=== PATIENT | male | born 1970 | race Hispanic/Latino ===

== ENCOUNTER 2017-10-07 21:35 | Inpatient (IN) | payer MEDICARE, OTHER ==
[2017-10-07] MEDS ORDERED: HYDROmorphone 0.5 mg/0.5 ml ISec IVP STA (22:12)
[2017-10-07 22:29] VITALS: BMI 34.4
[2017-10-07 22:32] LABS: BASO # 0.05 K/mm3 (0.0-2.0); BASO % 0.4 % (0.0-3.0); EOS # 0.2 (0.0-0.7); EOS % 1.2 % (1.5-5.0); GRAN # 11.46 (1.4-6.5); GRAN % 83.5 % (50.0-68.0); LYMPH # 1.3 (1.2-3.4); LYMPH % 9.7 % (22.0-35.0); MEAN CELL VOLUME 84.1 fl (80.0-105.0); MEAN CORPUSCULAR HEMOGLOBIN 29.4 pg (25.0-35.0); MEAN CORPUSCULAR HGB CONC 34.9 g/dl (31.0-37.0); MEAN PLATELET VOLUME 10.1 fl (7.0-11.0); MONO # 0.7 (0.1-0.6); MONO % 5.2 % (1.0-6.0); RBC 4.77 10^6/uL (3.5-6.1); RED CELL DISTRIBUTION WIDTH 14.4 % (11.5-14.5); WHITE BLOOD COUNT 13.7 10^3/ul (4.5-11.0)
[2017-10-07 22:35] LABS: ALB/GLOB RATIO 1.2 (1.1-1.8); ALBUMIN 4.2 g/dL (3.0-4.8); ALT/SGPT 30 U/L (7-56); AST/SGOT 19 U/L (17-59); BLOOD UREA NITROGEN 14 mg/dL (7-21); CALCIUM 9.9 mg/dL (8.4-10.5); GFR AFRICAN-AMERICAN > 60; GFR NON-AFRICAN AMERICAN > 60; LIPASE 127 U/L (23-300)
--- NOTE | 2017-10-07 22:42 | ED PDOC ---
Arrival/HPI - General Chief Complaint: Abdominal Pain Time Seen by Provider: 10/07/17 22:03 Historian: Patient - History of Present Illness Narrative History of Present Illness (Text): 10/07/17 22:40 A 47 year old male, whose past medical history includes gallstones, gastritis, diabetes and stroke (3 years ago) with right sided deficits, presents to the emergency department complaining of abdominal pain that developed today after eating dinner. Denies taking any medications for pain. Reports pain feels similar to symptoms in the past. Patient denies any other complaints at this time. Symptom Onset: Sudden Symptom Course: Unchanged Activities at Onset: Rest Context: Home Past Medical History - Provider Review Nursing Documentation Reviewed: Yes - Infectious Disease Hx of Infectious Diseases: None - Tetanus Immunization Tetanus Immunization: Unknown - Cardiac Hx Hypertension: Yes - Pulmonary Hx Respiratory Disorders: Yes (smokes 1 pack a day) - Neurological HX Cerebrovascular Accident: Yes - HEENT Hx HEENT Disorder: Yes - Renal Hx Renal Disorder: Yes - Endocrine/Metabolic Hx Diabetes Mellitus Type 2: Yes - Hematological/Oncological Hx Blood Disorders: Yes - Integumentary Hx Dermatological Disorder: Yes - Musculoskeletal/Rheumatological Hx Falls: Yes Hx Unsteady Gait: Yes Other/Comment: RT ARM CONTRACTION - Gastrointestinal Hx Gastrointestinal Disorders: Yes Other/Comment: Dx. gallstone - Genitourinary/Gynecological Hx Genitourinary Disorders: Yes - Psychiatric Hx Depression: Yes Hx Emotional Abuse: No Hx Physical Abuse: No Hx Substance Use: No - Past Surgical History Past Surgical History: No Previous - Anesthesia Hx Anesthesia: No Hx Anesthesia Reactions: No Hx Malignant Hyperthermia: No - Suicidal Assessment Feels Threatened In Home Enviroment: No Family/Social History - Physician Review Nursing Documentation Reviewed: Yes Family/Social History: No Known Family HX Smoking Status: Current Some Days Smoker Hx Alcohol Use: No Hx Substance Use: No Hx Substance Use Treatment: No Allergies/Home Meds Allergies/Adverse Reactions: Allergies No Known Allergies Allergy (Verified 12/04/13 13:51) Home Medications: Home Meds Medication Instructions Recorded Confirmed ALPRAZolam [Xanax] 0.5 mg PO PRN PRN 09/03/13 10/07/17 FLUoxetine [Prozac] 20 mg PO DAILY 09/03/13 10/07/17 Aspirin 81 mg PO DAILY 10/07/15 10/07/17 Famotidine [Pepcid] 40 mg PO BID 10/07/17 10/07/17 Gabapentin [Neurontin] 300 mg PO TID 10/07/17 10/07/17 Glipizide [Glipizide Xl] 5 mg PO BID 10/07/17 10/07/17 Review of Systems - Physician Review All systems were reviewed & negative as marked: Yes - Review of Systems Constitutional: absent: Fevers Gastrointestinal: Abdominal Pain Physical Exam Vital Signs Reviewed: Yes Vital Signs Temp Pulse Resp BP Pulse Ox 10/07/17 22:08 98.1 F 66 18 133/82 99 Temperature: Afebrile Blood Pressure: Normal Pulse: Regular Respiratory Rate: Normal Appearance: Positive for: Well-Appearing, Non-Toxic, Comfortable Pain Distress: None Mental Status: Positive for: Alert and Oriented X 3 - Systems Exam Head: Present: Atraumatic, Normocephalic Pupils: Present: PERRL Extroacular Muscles: Present: EOMI Conjunctiva: Present: Normal Mouth: Present: Moist Mucous Membranes Neck: Present: Normal Range of Motion Respiratory/Chest: Present: Clear to Auscultation, Good Air Exchange. No: Respiratory Distress, Accessory Muscle Use Cardiovascular: Present: Regular Rate and Rhythm, Normal S1, S2. No: Murmurs Abdomen: Present: Normal Bowel Sounds. No: Tenderness, Distention, Peritoneal Signs Back: Present: Normal Inspection Upper Extremity: Present: Normal Inspection. No: Cyanosis, Edema Lower Extremity: Present: Normal Inspection. No: Edema Neurological: Present: GCS=15, CN II-XII Intact, Speech Normal, Other (right sided deficit) Skin: Present: Warm, Dry, Normal Color. No: Rashes Psychiatric: Present: Alert, Oriented x 3, Normal Insight, Normal Concentration Medical Decision Making ED Course and Treatment: 10/07/17 22:38 Impression: A 47 year old male with abdominal pain. Plan: -- US abdomen -- urinalysis -- labs -- Zofran, Dilaudid -- Reassess and disposition Prior Visits: Notes and results from previous visits were reviewed. Patient last reported to the emergency department on 10/07/15 for evaluation of abdominal pain. Progress Notes: US Abdomen Complete FINDINGS: Liver: Limited evaluation. The liver is enlarged, measuring 19.3 cm. Sling increased and heterogenous echogenicity of the liver. Evaluation for lesion is limited. No intrahepatic bile duct dilation. Gallbladder: There are gallstones and there is gall bladder wall thickening, measuring 5 mm No sonographic Cook's sign as per technologist. Possibility of cholecystitis is not excluded. Correlate clinically. Common bile duct: The CBD is borderline dilated, measuring 6 mm. No stones. Pancreas: Pancreas is not visualized. Kidneys: kidneys are suboptimally visualized. No hydronephrosis or US evidence of calculi. Spleen: The spleen is borderline prominent. IMPRESSION: 1. There are gallstones and there is gall bladder wall thickening, measuring 5 mm . No sonographic Cook's sign as per technologist. Possibility of cholecystitis is not excluded. Correlate clinically. 2. The CBD is borderline dilated, measuring 6 mm. Dictated and Authenticated by: Amanda Felipe MD 10/07/2017 11:56 PM Eastern Time ([place] & [place]) 10/08/17 00:[address] Bermudez, who agrees and accepts patient to be admitted under her service. 10/08/17 01:00 Spoke with medical surgical tech and general surgeon, Dr. Mendoza, who agree to admit patient. - Lab Interpretations Lab Results: 10/07/17 22:19 10/07/17 22:19 Lab Results 10/07/17 22:54: Urine Color Yellow, Urine Appearance Sl cloudy, Urine pH 6.0, Ur Specific Start >= 1.030, Urine Protein 100 H, Urine Glucose (UA) Negative, Urine Ketones Trace H, Urine Blood Negative, Urine Nitrate Negative, Urine Bilirubin Negative, Urine Urobilinogen 1.0 H, Ur Leukocyte Esterase Negative, Urine RBC 0 - 2, Urine WBC 0 - 2, Ur Epithelial Cells 0 - 2, Urine Other Usperm 10/07/17 22:19: Sodium 138, Potassium 4.5, Chloride 99, Carbon Dioxide 26, Anion Gap 18, BUN 14, Creatinine 0.8, Est GFR ( Amer) > 60, Est GFR (Non- Af Amer) > 60, Random Glucose 185 H, Calcium 9.9, Total Bilirubin 1.4 H, AST 19 , ALT 30, Alkaline Phosphatase 141 H, Total Protein 7.7, Albumin 4.2, Globulin 3.6, Albumin/Globulin Ratio 1.2, Lipase 127 10/07/17 22:19: PT 13.2 H, INR 1.15 H 10/07/17 22:19: WBC 13.7 H D, RBC 4.77, Hgb 14.0, Hct 40.1 L, MCV 84.1, MCH 29.4 , MCHC 34.9, RDW 14.4, Plt Count 341, MPV 10.1, Gran % 83.5 H, Lymph % (Auto) 9.7 L, [place] % (Auto) 5.2, Eos % (Auto) 1.2 L, Baso % (Auto) 0.4, Gran # 11.46 H , Lymph # 1.3, [place] # 0.7 H, Eos # 0.2, Baso # 0.05 I have reviewed the lab results: Yes - RAD Interpretation Radiology Orders: 10/07/17 22:12 ABDOMEN COMPLETE [US] Stat - Medication Orders Current Medication Orders: Piperacillin Sod/Tazobactam Sod (Zosyn 3.375 In Ns 100ml) 100 mls @ 200 mls/hr IVPB STAT STA PRN Reason: Protocol Stop: 10/08/17 01:49 Discontinued Medications Hydromorphone HCl (Dilaudid) 1 mg IVP STAT STA Stop: 10/07/17 22:13 Last Admin: 10/07/17 22:40 Dose: 1 mg MAR Pain Assessment Document 10/07/17 22:40 AD (Rec: 10/07/17 22:40 AD [place] [id number]) Pain Reassessment Is this a pain reassessment? No Presence of Pain Presence of Pain Yes Description Intensity of Pain at present 6 Pain Behavior Facial Grimacing IVP Administration Document 10/07/17 22:40 AD (Rec: 10/07/17 22:40 AD [email or web address] Charges for Administration # of IVP Administrations 1 Ondansetron HCl (Zofran Inj) 8 mg IVP STAT STA Stop: 10/07/17 22:13 Last Admin: 10/07/17 22:39 Dose: 8 mg IVP Administration Document 10/07/17 22:39 AD (Rec: 10/07/17 22:40 AD [email or web address] Charges for Administration # of IVP Administrations 1 - PA / FOREIGN LANGUAGE INTERPRETER / Resident Statement MD/DO has reviewed & agrees with the documentation as recorded. - Scribe Statement The provider has reviewed the documentation as recorded by the Scribe Nan Ellsi All medical record entries made by the Scribe were at my direction and personally dictated by me. I have reviewed the chart and agree that the record accurately reflects my personal performance of the history, physical exam, medical decision making, and the department course for this patient. I have also personally directed, reviewed, and agree with the discharge instructions and disposition. Disposition/Present on Arrival - Present on Arrival Any Indicators Present on Arrival: No History of DVT/PE: No History of Uncontrolled Diabetes: Yes Urinary Catheter: No History of Decub. Ulcer: No History Surgical Site Infection Following: None - Disposition Have Diagnosis and Disposition been Completed?: Yes Diagnosis: Cholelithiasis, Cholecystitis Disposition: HOSPITALIZED Disposition Time: 01:17 (Dr. Bermudez Accepting, Consult [facility]) Patient Plan: Admission Referrals: Roxann Ziegler MD [Primary Care Provider] - Follow up with primary Forms: [employer] - [employer] (Korean)
[2017-10-07 22:48] LABS: INR 1.15 (0.93-1.08); PROTHROMBIN TIME 13.2 SECONDS (9.4-12.5)
[2017-10-07 23:04] LABS: URINE BILIRUBIN NEGATIVE (NEGATIVE); URINE BLOOD NEGATIVE (NEGATIVE); URINE GLUCOSE (UA) NEGATIVE (NEGATIVE); URINE LEUKOCYTE ESTERASE NEGATIVE Leu/uL (NEGATIVE); URINE NITRATE NEGATIVE (NEGATIVE); URINE PROTEIN 100 mg/dL (<30 mg/dL)
[2017-10-07 23:10] LABS: URINE COLOR YELLOW (YELLOW)
[2017-10-07 23:11] LABS: URINE APPEARANCE SL CLOUDY (CLEAR)
[2017-10-07 23:59] LABS: URINE EPITHELIAL CELLS 0 - 2 /hpf (0-5); URINE RBC 0 - 2 /hpf (0-2); URINE WBC 0 - 2 /hpf (0-6)
[2017-10-08] MEDS ORDERED: Piperacillin/Tazobact 3.375 gm 100 ML IVPB STA (01:20)
--- NOTE | 2017-10-08 02:04 | CP.PCM.CON ---
<Guido Lee - Last Filed: 10/08/17 02:05> History of Present Illness - History of Present Illness History of Present Illness: General Surgery- Dr. Mendoza 47M hx of CVA w/ residual RUE deficit, cholelithiasis, NIDDM, presents to the ED w/ sharp RUQ abd pain that started at 1800 last night 2hrs after eating a fatty meal. Patient has had similar episodes in the past before, but pain not as severe. Pain is better in the ED after receiving pain medication. Has had episodes of non-bloody loose bowel movements over the last 2 days. Denies recent sick contacts. Denies: Nausea, vomiting, chest pain, shortness of breath, fevers, chills, changes in urinary habits PMH: CVA w/ residual RUE deficit, NIDDM, cholelithiasis, anxiety, depression PSH: Denies ALL: NKDA SocialHx: former smoker quit 3yrs ago s/p CVA- 1ppd > 10yrs, denies ETOH, recreational drug use Review of Systems - Review of Systems All systems: reviewed and no additional remarkable complaints except - Constitutional Constitutional: As Per HPI Past Patient History - Infectious Disease Hx of Infectious Diseases: None - Tetanus Immunizations Tetanus Immunization: Unknown - Past Social History Smoking Status: Current Some Days Smoker - CARDIAC Hx Hypertension: Yes - PULMONARY Hx Respiratory Disorders: Yes (smokes 1 pack a day) - NEUROLOGICAL HX Cerebrovascular Accident: Yes - HEENT Hx HEENT Problems: Yes - RENAL Hx Chronic Kidney Disease: Yes - ENDOCRINE/METABOLIC Hx Diabetes Mellitus Type 2: Yes - HEMATOLOGICAL/ONCOLOGICAL Hx Blood Disorders: Yes - INTEGUMENTARY Hx Dermatological Problems: Yes - MUSCULOSKELETAL/RHEUMATOLOGICAL Hx Falls: Yes Hx Unsteady Gait: Yes Other/Comment: RT ARM CONTRACTION - GASTROINTESTINAL Hx Gastrointestinal Disorders: Yes Other/Comment: Dx. gallstone - GENITOURINARY/GYNECOLOGICAL Hx Genitourinary Disorders: Yes - PSYCHIATRIC Hx Depression: Yes Hx Emotional Abuse: No Hx Physical Abuse: No Hx Substance Use: No - SURGICAL HISTORY Hx Surgeries: No - ANESTHESIA Hx Anesthesia: No Hx Anesthesia Reactions: No Hx Malignant Hyperthermia: No Meds Allergies/Adverse Reactions: Allergies Allergy/AdvReac Type Severity Reaction Status Date / Time No Known Allergies Allergy Verified 12/04/13 13:51 - Medications Medications: Current Medications Acetaminophen (Tylenol 325mg Tab) 650 mg PO Q4 PRN PRN Reason: Fever >100.4 F Hydromorphone HCl (Dilaudid) 0.5 mg IVP Q4H PRN PRN Reason: Pain, moderate (4-7) Lactated Ringer's (Lactated Ringer's) 1,000 mls @ 150 mls/hr IV .Q6H40M KAREEN Piperacillin Sod/Tazobactam Sod (Zosyn 3.375 In Ns 100ml) 100 mls @ 200 mls/hr IVPB Q6 KAREEN PRN Reason: Protocol Stop: 10/08/17 12:29 Insulin Human Regular (Humulin R Med) 0 units SC ACHS KAREEN PRN Reason: Protocol Ondansetron HCl (Zofran Inj) 4 mg IVP Q4 PRN PRN Reason: Nausea/Vomiting Physical Exam - Constitutional Appears: Non-toxic, No Acute Distress - Eye Exam Eye Exam: EOMI. absent: Scleral icterus - Respiratory Exam Respiratory Exam: NORMAL BREATHING PATTERN. absent: Accessory Muscle Use, Respiratory Distress - Cardiovascular Exam Cardiovascular Exam: +S1, +S2. absent: Bradycardia, Tachycardia - GI/Abdominal Exam GI & Abdominal Exam: Soft, Tenderness. absent: Distended, Firm, Guarding, Hernia, Rebound, Rigid Additional comments: Tender to palpation in RUQ negative morales sign - Extremities Exam Extremities exam: Negative for: calf tenderness Additional comments: contracted R hand RUE paralysis - Back Exam Back exam: absent: CVA tenderness (L), CVA tenderness (R) - Neurological Exam Neurological exam: Alert, Oriented x3 - Psychiatric Exam Psychiatric exam: Normal Affect - Skin Skin Exam: Intact, Warm Results - Vital Signs Recent Vital Signs: Last Vital Signs Temp 98.1 F 10/07/17 22:08 Pulse 66 10/07/17 22:08 Resp 18 10/07/17 22:08 BP 133/82 10/07/17 22:08 Pulse Ox 99 10/07/17 22:08 - Labs Result Diagrams: 10/07/17 22:19 10/07/17 22:19 Assessment & Plan - Assessment and Plan (Free Text) Assessment: 47M RUQ abd pain symptomatic cholelithiasis vs cholecystitis US: GBW thickening 6mm, gallstone in the neck of the gallbladder, minimal pericholecystic fluid, CBD wnl Plan: - NPO - IVF/Abx - analgesia & anti-emetic PRN - DVT ppx - serial abd exams - further recs per Dr. Mendoza surgical attending Guido Lee PGY1 <Dada Mendoza - Last Filed: 10/12/17 15:38> Results - Vital Signs Recent Vital Signs: Last Vital Signs Temp 97.9 F 10/11/17 04:50 Pulse 70 10/11/17 12:47 Resp 18 10/11/17 04:50 BP 158/87 H 10/11/17 12:47 Pulse Ox 97 10/11/17 04:50 - Labs Result Diagrams: 10/11/17 06:45 10/11/17 06:45 Attending/Attestation - Attestation I have personally seen and examined this patient.: Yes I have fully participated in the care of the patient.: Yes I have reviewed all pertinent clinical information: Yes Notes (Text): Pt was seen and examined at bedside Agree with above note and assessment Pt with Cholecystitis and Cholelithiasis with CVA RUQ tenderness OR tomorrow for Lap Cholecystectomy possible Open Consent NPO, IVF IV antibiotics Neurology consult Cardiology clearance Medical clearance Plan d.w pt in detail Risk and benefit explained in detail.
[2017-10-08] MEDS: Lactated Ringer's 1,000 ML IV SCH ×3 (02:47→14:22)
[2017-10-08 05:40] LABS: BASO # 0.04 K/mm3 (0.0-2.0); BASO % 0.4 % (0.0-3.0); EOS # 0.2 (0.0-0.7); EOS % 2.3 % (1.5-5.0); GRAN # 6.75 (1.4-6.5); GRAN % 64.5 % (50.0-68.0); HEMOGLOBIN 12.8 g/dL (14.0-18.0); LYMPH # 2.6 (1.2-3.4); MEAN CELL VOLUME 83.8 fl (80.0-105.0); MEAN CORPUSCULAR HEMOGLOBIN 28.8 pg (25.0-35.0); MEAN CORPUSCULAR HGB CONC 34.4 g/dl (31.0-37.0); MEAN PLATELET VOLUME 10.3 fl (7.0-11.0); MONO # 0.8 (0.1-0.6); MONO % 7.8 % (1.0-6.0); RBC 4.44 10^6/uL (3.5-6.1); RED CELL DISTRIBUTION WIDTH 14.2 % (11.5-14.5); WHITE BLOOD COUNT 10.5 10^3/ul (4.5-11.0)
[2017-10-08 07:00] LABS: ALB/GLOB RATIO 1.2 (1.1-1.8); ALBUMIN 3.5 g/dL (3.0-4.8); ALT/SGPT 18 U/L (7-56); AST/SGOT 20 U/L (17-59); BLOOD UREA NITROGEN 13 mg/dL (7-21); CALCIUM 9.1 mg/dL (8.4-10.5); GFR AFRICAN-AMERICAN > 60; GFR NON-AFRICAN AMERICAN > 60
[2017-10-08] MEDS: Insulin Reg-MEDIUM-Coverage SC SCH ×2 (08:14→11:59)
[2017-10-08] MEDS: Piperacillin/Tazobact 3.375 gm 100 ML IVPB SCH ×2 (08:59→14:17)
--- NOTE | 2017-10-08 10:10 | US ---
HISTORY: Acute Cholecystitis? COMPARISON: None. TECHNIQUE: Sonographic evaluation of the abdomen. FINDINGS: LIVER: Measures 19.3. Cm. Diffusely increased echogenicity of the liver parenchyma. Consistent with fatty infiltration. Smooth contour. No mass. No biliary ductal dilatation. GALLBLADDER: Cholelithiasis. Thickened wall up to 5 mm. No pericholecystic fluid. Negative sonographic Cook sign. COMMON BILE DUCT: Measures 6 mm. No stones. No dilatation. PANCREAS: Unremarkable as visualized. No mass. No ductal dilatation. RIGHT KIDNEY: Measures 10.4cm. Normal echogenicity. No calculus, mass, or hydronephrosis. LEFT KIDNEY: Measures 12.3cm. Normal echogenicity. No calculus, mass, or hydronephrosis. SPLEEN: Normal in size and contour. No mass. AORTA: Could not be visualized due to bowel gas IVC: Unremarkable. OTHER FINDINGS: None. IMPRESSION: Cholelithiasis with thickened gallbladder wall. Negative sonographic Cook sign. Equivocal findings for cholecystitis. Correlate clinically. Mild hepatomegaly with fatty infiltration of the liver. Otherwise unremarkable examination. Preliminary interpretation of this examination was reported by [facility] at 11:56 p.m. on 10/07/2017. There is concurrence of this report with the preliminary interpretation.
[2017-10-08] MEDS: GlipiZIDE 5 mg SR Tab PO SCH ×2 (10:47→17:05)
[2017-10-08] MEDS: Insulin Reg-LOW-Coverage SC SCH ×3 (12:38→22:10)
--- NOTE | 2017-10-08 18:24 | CP.PCM.PCO ---
Physician Communication Note - Physician Communication Note Physician Communication Note: saw pt last wek in office, cleared for surgery. will f/w consult.
--- NOTE | 2017-10-08 22:01 | CT ---
EXAM: CT Head Without Intravenous Contrast EXAM DATE/TIME: 10/08/2017 6:24 PM CLINICAL HISTORY: The patient age is 47 years old and is male; Pain; Headache; Headache not specified; Additional info: H/o CVA Facility exam id and description: Ct heads head w/o contrast TECHNIQUE: Axial computed tomography images of the head/brain without intravenous contrast. All CT scans at this facility use one or more dose reduction techniques, viz.: automated exposure control; ma/kV adjustment per patient size (including targeted exams where dose is matched to indication; i.e. head); or iterative reconstruction technique. Coronal and sagittal reformatted images were created and reviewed. COMPARISON: No relevant prior studies available. FINDINGS: Brain: Hypodense lacunar infarcts are visualized within the bilateral basal ganglia and left periventricular region, which appear chronic. There are scattered foci of hypodensity within the cerebral white matter, nonspecific in a patient this age. Possible etiologies include small vessel ischemic disease and demyelination. No acute intracranial hemorrhage is seen. Midline shift: There is no midline shift. Ventricles: There is mild ex vacuo dilatation of the left lateral ventricle. Bones/joints: The calvarium demonstrates no evidence for a depressed fracture. Soft tissues: There is mild soft tissue swelling or scarring of the posterior scalp. Sinuses: A mucus retention cyst or polyp is visualized within the right maxillary sinus. Mastoid air cells: No mastoid effusion. IMPRESSION: 1. Hypodense lacunar infarcts are visualized within the bilateral basal ganglia and left periventricular region, which appear chronic. Otherwise, there is no acute territorial type infarct. 2. No acute intracranial hemorrhage. 3. There are scattered foci of hypodensity within the cerebral white matter, nonspecific in a patient this age. Possible etiologies include small vessel ischemic disease and demyelination. This can be further evaluated with a nonemergent MRI. 4. There is mild soft tissue swelling or scarring of the posterior scalp.
[2017-10-09 06:20] LABS: BASO # 0.06 K/mm3 (0.0-2.0); BASO % 0.8 % (0.0-3.0); EOS # 0.3 (0.0-0.7); EOS % 4.2 % (1.5-5.0); GRAN # 5.12 (1.4-6.5); GRAN % 64.7 % (50.0-68.0); HEMOGLOBIN 12.8 g/dL (14.0-18.0); LYMPH # 1.8 (1.2-3.4); LYMPH % 23.3 % (22.0-35.0); MEAN CELL VOLUME 82.4 fl (80.0-105.0); MEAN CORPUSCULAR HEMOGLOBIN 28.8 pg (25.0-35.0); MEAN PLATELET VOLUME 10.1 fl (7.0-11.0); MONO # 0.6 (0.1-0.6); RBC 4.44 10^6/uL (3.5-6.1); RED CELL DISTRIBUTION WIDTH 14.3 % (11.5-14.5); WHITE BLOOD COUNT 7.9 10^3/ul (4.5-11.0)
[2017-10-09 06:26] LABS: IRON 48 ug/dL (45-180)
[2017-10-09 06:31] LABS: ALB/GLOB RATIO 1.2 (1.1-1.8); ALBUMIN 3.4 g/dL (3.0-4.8); ALT/SGPT 23 U/L (7-56); AST/SGOT 21 U/L (17-59); BLOOD UREA NITROGEN 10 mg/dL (7-21); CALCIUM 9.5 mg/dL (8.4-10.5); GFR AFRICAN-AMERICAN > 60; GFR NON-AFRICAN AMERICAN > 60; HDL CHOLESTEROL 27 mg/dL (29-60)
[2017-10-09 06:36] LABS: % IRON SATURATION 19 % (20-55); TOTAL IRON BINDING CAPACITY 252 ug/dL (261-462)
[2017-10-09 06:41] LABS: LDL CHOLESTEROL 45 mg/dL (0-129)
--- NOTE | 2017-10-09 07:53 | CP.PCM.CON ---
<YaniqueElizabeth - Last Filed: 10/09/17 10:07> History of Present Illness - History of Present Illness History of Present Illness: PGY-[address] Head Neurology consult: surgical clearance Mr Dexter Shah, 47M former smoker hx of CVA w/ residual spastic RUE weakness, diabetes, and HTN presents to the ED c/o sharp RUQ abd pain that started last night 2hrs after eating a fatty meal. Patient has had similar episodes in the past before, but pain not as severe. Pain is better in the ED after receiving tylenol and gabapentin. Pt's last bowel movement was over 2 days ago. Abdominal ultrasound showed gall bladder wall thickening 6mm, gallstone in the neck of the gallbladder, minimal pericholecystic fluid, CBD wnl. Pt was diagnosed with symptomatic cholelithiasis and will undergo laparoscopic cholecystectomy this afternoon. Denies recent sick contacts. 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, 2012 HTN Diabetes, non-insulin dependent, x 20 years cholelithiasis anxiety, mild depression PSH: Denies SocialHx: former smoker quit 3yrs ago s/p CVA 1ppd > 10yrs, denies ETOH, recreational drug use Ambulate with cane Live with and daughter ALL: NKDA Med: review Review of Systems - Review of Systems All systems: reviewed and no additional remarkable complaints except Review of Systems: as per hpi Past Patient History - Infectious Disease Hx of Infectious Diseases: None - Tetanus Immunizations Tetanus Immunization: Unknown - Past Social History Smoking Status: Never Smoked - CARDIAC Hx Hypertension: Yes - PULMONARY Hx Respiratory Disorders: No - NEUROLOGICAL HX Cerebrovascular Accident: Yes - HEENT Hx HEENT Problems: No - RENAL Hx Chronic Kidney Disease: No - ENDOCRINE/METABOLIC Hx Diabetes Mellitus Type 2: Yes - HEMATOLOGICAL/ONCOLOGICAL Hx Blood Transfusions: No Hx Blood Transfusion Reaction: No - INTEGUMENTARY Hx Dermatological Problems: No - MUSCULOSKELETAL/RHEUMATOLOGICAL Hx Falls: No Hx Unsteady Gait: Yes Other/Comment: RT ARM CONTRACTION - GASTROINTESTINAL Hx Gall Bladder Disease: Yes Other/Comment: Dx. gallstone - GENITOURINARY/GYNECOLOGICAL Hx Genitourinary Disorders: No - PSYCHIATRIC Hx Depression: Yes Hx Emotional Abuse: No Hx Physical Abuse: No Hx Substance Use: No - SURGICAL HISTORY Hx Surgeries: No - ANESTHESIA Hx Anesthesia Reactions: No Hx Malignant Hyperthermia: No Meds Allergies/Adverse Reactions: Allergies Allergy/AdvReac Type Severity Reaction Status Date / Time No Known Allergies Allergy Verified 12/04/13 13:51 - Medications Medications: Current Medications Acetaminophen (Tylenol 325mg Tab) 650 mg PO Q4 PRN PRN Reason: Fever >100.4 F Last Admin: 10/08/17 10:50 Dose: 650 mg Alprazolam (Xanax) 0.5 mg PO PRN PRN; Protocol PRN Reason: Insomnia Atorvastatin Calcium (Lipitor) 40 mg PO DIN [facility] Last Admin: 10/08/17 17:05 Dose: Not Given Fluoxetine HCl (Prozac) 20 mg PO DAILY [facility] Last Admin: 10/08/17 10:46 Dose: 20 mg Gabapentin (Neurontin) 300 mg PO TID [facility] PRN Reason: Protocol Last Admin: 10/08/17 17:06 Dose: Not Given Glipizide (Glucotrol Xl) 5 mg PO BID [facility] Last Admin: 10/08/17 17:05 Dose: Not Given Hydromorphone HCl (Dilaudid) 0.5 mg IVP Q4H PRN PRN Reason: Pain, moderate (4-7) Insulin Human Regular (Humulin R Low) 0 units SC ACHS [facility] PRN Reason: Protocol Last Admin: 10/08/17 22:10 Dose: Not Given Metformin HCl (Glucophage) 1,000 mg PO BID [facility] Last Admin: 10/08/17 17:06 Dose: Not Given Ondansetron HCl (Zofran Inj) 4 mg IVP Q4 PRN PRN Reason: Nausea/Vomiting Pantoprazole Sodium (Protonix Inj) 40 mg IVP DAILY [facility] Last Admin: 10/08/17 10:47 Dose: 40 mg Physical Exam - Constitutional Appears: Well - Head Exam Head Exam: ATRAUMATIC, NORMAL INSPECTION, NORMOCEPHALIC - Eye Exam Eye Exam: EOMI, Normal appearance, PERRL Pupil Exam: NORMAL ACCOMODATION, PERRL - ENT Exam ENT Exam: Mucous Membranes Moist - Neck Exam Neck exam: Positive for: Normal Inspection Additional comments: supple - Respiratory Exam Respiratory Exam: Clear to Auscultation Bilateral, NORMAL BREATHING PATTERN - Cardiovascular Exam Cardiovascular Exam: REGULAR RHYTHM, +S1, +S2 - GI/Abdominal Exam GI & Abdominal Exam: Normal Bowel Sounds, Soft, Tenderness (Slight tenderness RUQ ) - Neurological Exam Neurological exam: Alert, CN II-XII Intact, Oriented x3 Additional comments: Speech: fluent, mild slurring recall: 2/3 Motor: R shoulder 0/5. Increase tone in RUE in elbow extension and wrist extension RUE 0/5; LUE 5/5 RLE: 4/5; LLE 5/5 Sensory: intact coordination: heel-gliding intact Results - Vital Signs Recent Vital Signs: Last Vital Signs Temp 97.9 F 10/09/17 05:40 Pulse 65 10/09/17 05:40 Resp 20 10/09/17 05:40 BP 144/81 10/09/17 05:40 Pulse Ox 96 10/09/17 05:40 - Labs Result Diagrams: 10/09/17 06:00 10/09/17 06:00 Labs: Laboratory Results - last 24 hr 10/08/17 10/08/17 10/08/17 07:32 11:45 16:30 WBC RBC Hgb Hct MCV MCH MCHC RDW Plt Count MPV Gran % Lymph % (Auto) [place] % (Auto) Eos % (Auto) Baso % (Auto) Gran # Lymph # [place] # Eos # Baso # Sodium Potassium Chloride Carbon Dioxide Anion Gap BUN Creatinine Est GFR ( Amer) Est GFR (Non-Af Amer) POC Glucose (mg/dL) 80 158 H 93 Random Glucose Calcium Iron TIBC % Saturation Total Bilirubin AST ALT Alkaline Phosphatase Total Protein Albumin Globulin Albumin/Globulin Ratio Triglycerides Cholesterol LDL Cholesterol Direct HDL Cholesterol TSH 3rd Generation 10/08/17 10/09/17 10/09/17 22:08 06:00 06:00 WBC RBC Hgb Hct MCV MCH MCHC RDW Plt Count MPV Gran % Lymph % (Auto) [place] % (Auto) Eos % (Auto) Baso % (Auto) Gran # Lymph # [place] # Eos # Baso # Sodium 141 Potassium 4.1 Chloride 103 Carbon Dioxide 27 Anion Gap 15 BUN 10 Creatinine 0.8 Est GFR ( Amer) > 60 Est GFR (Non-Af Amer) > 60 POC Glucose (mg/dL) 107 Random Glucose 116 H Calcium 9.5 Iron 48 TIBC 252 L % Saturation 19 L Total Bilirubin 1.0 AST 21 ALT 23 Alkaline Phosphatase 106 Total Protein 6.3 Albumin 3.4 Globulin 2.9 Albumin/Globulin Ratio 1.2 Triglycerides 83 Cholesterol 85 L LDL Cholesterol Direct 45 HDL Cholesterol 27 L TSH 3rd Generation 10/09/17 10/09/17 10/09/17 06:00 06:00 07:20 WBC 7.9 D RBC 4.44 Hgb 12.8 L Hct 36.6 L MCV 82.4 MCH 28.8 MCHC 35.0 RDW 14.3 Plt Count 310 MPV 10.1 Gran % 64.7 Lymph % (Auto) 23.3 [place] % (Auto) 7.0 H Eos % (Auto) 4.2 Baso % (Auto) 0.8 Gran # 5.12 Lymph # 1.8 [place] # 0.6 Eos # 0.3 Baso # 0.06 Sodium Potassium Chloride Carbon Dioxide Anion Gap BUN Creatinine Est GFR ( Amer) Est GFR (Non-Af Amer) POC Glucose (mg/dL) 119 H Random Glucose Calcium Iron TIBC % Saturation Total Bilirubin AST ALT Alkaline Phosphatase Total Protein Albumin Globulin Albumin/Globulin Ratio Triglycerides Cholesterol LDL Cholesterol Direct HDL Cholesterol TSH 3rd Generation 1.65 Assessment & Plan - Assessment and Plan (Free Text) Plan: Mr Dexter Shah, 47M former smoker hx of CVA w/ residual spastic RUE weakness with mild depression, diabetes, and HTN has symptomatic cholelithiasis and will undergo laparoscopic cholecystectomy this afternoon. - neurology cleared for the above stated surgery - continue aspirin 81 and lipitor 40 for stroke prevention - maintain SBP 120-130 - maintain blood glucose 140-180 - ____pending offical read of carotid ultrasound - CT head: chronic hypodense lacunar infart b/l basal ganglia and L periventrical scattered hypodensity in white matter likely Small vessel ischemic disease Mild soft tissue swelling in posterior scalp s/r/d/w Dr. Head <Elbert Head - Last Filed: 10/09/17 12:22> Meds - Medications Medications: Current Medications Acetaminophen (Tylenol 325mg Tab) 650 mg PO Q4 PRN PRN Reason: Fever >100.4 F Last Admin: 10/08/17 10:50 Dose: 650 mg Alprazolam (Xanax) 0.5 mg PO PRN PRN; Protocol PRN Reason: Insomnia Atorvastatin Calcium (Lipitor) 40 mg PO DIN [facility] Last Admin: 10/08/17 17:05 Dose: Not Given Fluoxetine HCl (Prozac) 20 mg PO DAILY [facility] Last Admin: 10/08/17 10:46 Dose: 20 mg Gabapentin (Neurontin) 300 mg PO TID [facility] PRN Reason: Protocol Last Admin: 10/08/17 17:06 Dose: Not Given Glipizide (Glucotrol Xl) 5 mg PO BID [facility] Last Admin: 10/08/17 17:05 Dose: Not Given Hydromorphone HCl (Dilaudid) 0.5 mg IVP Q4H PRN PRN Reason: Pain, moderate (4-7) Insulin Human Regular (Humulin R Low) 0 units SC ACHS [facility] PRN Reason: Protocol Last Admin: 10/09/17 08:13 Dose: Not Given Metformin HCl (Glucophage) 1,000 mg PO BID [facility] Last Admin: 10/08/17 17:06 Dose: Not Given Ondansetron HCl (Zofran Inj) 4 mg IVP Q4 PRN PRN Reason: Nausea/Vomiting Pantoprazole Sodium (Protonix Inj) 40 mg IVP DAILY [facility] Last Admin: 10/09/17 10:38 Dose: 40 mg Results - Vital Signs Recent Vital Signs: Last Vital Signs Temp 97.9 F 10/09/17 05:40 Pulse 65 10/09/17 05:40 Resp 20 10/09/17 05:40 BP 144/81 10/09/17 05:40 Pulse Ox 96 10/09/17 05:40 - Labs Result Diagrams: 10/09/17 06:00 10/09/17 06:00 Labs: Laboratory Results - last 24 hr 10/08/17 10/08/17 10/08/17 07:32 16:30 22:08 WBC RBC Hgb Hct MCV MCH MCHC RDW Plt Count MPV Gran % Lymph % (Auto) [place] % (Auto) Eos % (Auto) Baso % (Auto) Gran # Lymph # [place] # Eos # Baso # Sodium Potassium Chloride Carbon Dioxide Anion Gap BUN Creatinine Est GFR ( Amer) Est GFR (Non-Af Amer) POC Glucose (mg/dL) 80 93 107 Random Glucose Hemoglobin A1c Calcium Iron TIBC % Saturation Total Bilirubin AST ALT Alkaline Phosphatase Total Protein Albumin Globulin Albumin/Globulin Ratio Triglycerides Cholesterol LDL Cholesterol Direct HDL Cholesterol Vitamin B12 Folate TSH 3rd Generation 10/09/17 10/09/17 10/09/17 06:00 06:00 06:00 WBC RBC Hgb Hct MCV MCH MCHC RDW Plt Count MPV Gran % Lymph % (Auto) [place] % (Auto) Eos % (Auto) Baso % (Auto) Gran # Lymph # [place] # Eos # Baso # Sodium 141 Potassium 4.1 Chloride 103 Carbon Dioxide 27 Anion Gap 15 BUN 10 Creatinine 0.8 Est GFR ( Amer) > 60 Est GFR (Non-Af Amer) > 60 POC Glucose (mg/dL) Random Glucose 116 H Hemoglobin A1c 6.3 Calcium 9.5 Iron 48 TIBC 252 L % Saturation 19 L Total Bilirubin 1.0 AST 21 ALT 23 Alkaline Phosphatase 106 Total Protein 6.3 Albumin 3.4 Globulin 2.9 Albumin/Globulin Ratio 1.2 Triglycerides 83 Cholesterol 85 L LDL Cholesterol Direct 45 HDL Cholesterol 27 L Vitamin B12 445 Folate 14.0 [facility] 3rd Generation 10/09/17 10/09/17 10/09/17 06:00 06:00 07:20 WBC 7.9 D RBC 4.44 Hgb 12.8 L Hct 36.6 L MCV 82.4 MCH 28.8 MCHC 35.0 RDW 14.3 Plt Count 310 MPV 10.1 Gran % 64.7 Lymph % (Auto) 23.3 [place] % (Auto) 7.0 H Eos % (Auto) 4.2 Baso % (Auto) 0.8 Gran # 5.12 Lymph # 1.8 [place] # 0.6 Eos # 0.3 Baso # 0.06 Sodium Potassium Chloride Carbon Dioxide Anion Gap BUN Creatinine Est GFR ( Amer) Est GFR (Non-Af Amer) POC Glucose (mg/dL) 119 H Random Glucose Hemoglobin A1c Calcium Iron TIBC % Saturation Total Bilirubin AST ALT Alkaline Phosphatase Total Protein Albumin Globulin Albumin/Globulin Ratio Triglycerides Cholesterol LDL Cholesterol Direct HDL Cholesterol Vitamin B12 Folate [facility] 3rd Generation 1.65 10/09/17 11:03 WBC RBC Hgb Hct MCV MCH MCHC RDW Plt Count MPV Gran % Lymph % (Auto) [place] % (Auto) Eos % (Auto) Baso % (Auto) Gran # Lymph # [place] # Eos # Baso # Sodium Potassium Chloride Carbon Dioxide Anion Gap BUN Creatinine Est GFR ( Amer) Est GFR (Non-Af Amer) POC Glucose (mg/dL) 128 H Random Glucose Hemoglobin A1c Calcium Iron TIBC % Saturation Total Bilirubin AST ALT Alkaline Phosphatase Total Protein Albumin Globulin Albumin/Globulin Ratio Triglycerides Cholesterol LDL Cholesterol Direct HDL Cholesterol Vitamin B12 Folate TSH 3rd Generation Attending/Attestation - Attestation I have personally seen and examined this patient.: Yes I have fully participated in the care of the patient.: Yes I have reviewed all pertinent clinical information: Yes
[2017-10-09] MEDS: Insulin Reg-LOW-Coverage SC SCH ×4 (08:13→21:27)
--- NOTE | 2017-10-09 08:40 | HP ---
CHIEF COMPLAINT: Abdominal pain. HISTORY OF PRESENT ILLNESS: This patient is a 47 years old male with past medical history including cholelithiasis, gastritis, stroke two years ago with right-sided deficit, came to the Emergency Department, complaining of abdominal pain that developed two days after eating dinner. Denies any taking medications for pain. Reports pain feels symptomatic even in the past. Denies fever or chills and nausea and vomiting, diarrhea, hematuria, and hematochezia. No headache. No dizziness. PAST MEDICAL HISTORY: Hypertension, history of cerebrovascular accident, renal disorder, type 2 diabetes mellitus, history of fall, unsteady gait, right contracture, depression. FAMILY HISTORY: Father and mother is noncontributory. HABITS: Smoking currently. Alcohol, no. Substance abuse, no. ALLERGIES: THE PATIENT IS NOT ALLERGIC WITH ANY MEDICATIONS. HOME MEDICATIONS: Xanax, Prozac, aspirin, Pepcid, Neurontin, and glipizide. REVIEW OF SYSTEMS: The patient was seen and examined in the room looking comfortable. No hematuria or hematochezia. No headache, no dizziness, still having abdominal pain. No fever. No chills. No dysuria. PHYSICAL EXAMINATION: VITAL SIGNS: Temperature 98.1, pulse 66, respiratory rate 18, blood pressure 132/82, and pulse oximetry is 99%. HEENT: Head: Normocephalic, atraumatic. Eyes: PERRLA. Extraocular muscles are intact. Conjunctivae are clear. Nose patent. Mucous membranes moist. NECK: Supple. No carotid bruits, JVD or thyromegaly. CHEST: Bilaterally symmetrical. HEART: S1 and S2 positive. LUNGS: Clear to auscultation. ABDOMEN: Soft. Bowel sounds positive. No organomegaly. EXTREMITIES: No edema. No cyanosis. Right upper extremity has contracture. NEUROLOGICAL: The patient is awake and alert. Obeying simple orders. Oriented x3. LABORATORY DATA: White blood cells 13.7, hemoglobin 14.0, hematocrit 40.1, and platelets 131,000. Sodium 138, potassium 4.1, BUN 14, creatinine 0.6, glucose 185. ASSESSMENT AND PLAN: Dexter Villarreal is a 47 years old male with leukocytosis, hyperglycemia, came with abdominal pain, nauseousness, had cholelithiasis, cholecystitis, readmitted as outpatient called consult with Dr. Mendoza, surgeon, discussion with Dr. Mendoza because the patient has stroke history. He wants clearance from the neurologist, mammography tech and optical goods drill operator because the patient has history of heavy smoking. The patient has history of stroke, hypertension, smokes one pack per day. We will give nicotine patch, diabetes mellitus type 2, history of fall, MRCP done , results are pending. We will follow. Marily Bermudez MD MTDD
--- NOTE | 2017-10-09 10:41 | RAD ---
HISTORY: Preoperative assessment for 12 noon today COMPARISON: Comparison chest dated 10/07/2015 TECHNIQUE: Chest PA and lateral FINDINGS: LUNGS: Poor inspiration with low lung volumes, crowded bronchovascular markings and minor bibasilar atelectasis PLEURA: No significant pleural effusion identified. No pneumothorax apparent. CARDIOVASCULAR: Normal. OSSEOUS STRUCTURES: Mild multilevel degenerative spondylosis of the thoracic spine. . VISUALIZED UPPER ABDOMEN: Normal. OTHER FINDINGS: None. IMPRESSION: Poor inspiration with low lung volumes, crowded bronchovascular markings and minor bibasilar atelectasis
[2017-10-09] MEDS ORDERED: Bupivacaine 0.5% Inj(30mL) ONE (12:54)
[2017-10-09] MEDS ORDERED: Lidocaine 1% w Epi 1:100,000 Inj ONE (12:54)
--- NOTE | 2017-10-09 13:29 | MRI ---
MRCP Indication: Right upper quadrant pain Technique: Multiplanar, multisequence MR images of the abdomen were obtained, including heavily T2 weighted MRCP images of the biliary system. Rotating maximum intensity projection images of the biliary system were generated. A total of 778 images were submitted for review. Comparison: Abdominal ultrasound performed 10/07/17 Findings: Examination limited by motion. The liver appears grossly unremarkable on this noncontrast examination. Cholelithiasis. Mild gallbladder wall thickening/pericholecystic edema. There is no intrahepatic biliary ductal dilatation. The common bile duct appears within normal limits in caliber measuring approximately 4-5 mm and tapers distally. The pancreatic duct appears within normal limits of caliber. No filling defects are seen in the common bile duct or pancreatic duct. 9 mm T2 hyperintense, T1 hypo intense splenic lesion consistent with a cyst which cannot be further assessed in the absence of IV contrast. The included portions of the noncontrast adrenal glands, kidneys, and pancreas appear otherwise 9 unremarkable. No bulky abdominal lymphadenopathy is seen. No ascites. No acute osseous abnormality is detected. Impression: Cholelithiasis. Mild gallbladder wall thickening/pericholecystic edema. Correlate clinically for possibility of cholecystitis. No filling defects seen within the common bile duct which appears within normal limits of caliber. Probable splenic cyst. Preliminary impression was provided by virtual radiologic.
--- NOTE | 2017-10-09 13:31 | US ---
PROCEDURE: Bilateral carotid artery duplex ultrasound HISTORY: Carotid stenosis CVA PHYSICIAN(S): Franco Cordova MD. TECHNIQUE: Duplex sonography and color-flow Doppler were used to evaluate the carotid bifurcations and limited segments of the vertebral arteries bilaterally. FINDINGS: There is mild to moderate smooth heterogeneous plaque noted at the carotid bifurcations bilaterally. The peak systolic velocity in the proximal right internal carotid artery is 95 cm/sec. This corresponds to a 20 to 39% proximal right ICA stenosis. Normal systolic velocities are noted in the proximal right external carotid artery. There is antegrade flow in the dominant right vertebral artery. The peak systolic velocity in the proximal left internal carotid artery is 103 cm/sec. This corresponds to a 20 to 39% proximal left ICA stenosis. Normal systolic velocities are noted in the proximal left external carotid artery. There is antegrade flow in the atretic left vertebral artery. IMPRESSION: 1. Bilateral 20-39% proximal ICA stenoses. 2. Antegrade flow in both vertebral arteries.
[2017-10-09] MEDS ORDERED: Propofol 10 mg/ml Inj (20 ML) ONE (13:47)
[2017-10-09] MEDS ORDERED: Midazolam 2 MG/2 ML VIAL ONE (13:48)
[2017-10-09] MEDS ORDERED: Rocuronium 10 mg/ml (5 ml) ONE (13:50)
[2017-10-09] MEDS ORDERED: Sevoflurane - Inhalation Anesthetic Liq (250 ml) ONE (13:59)
[2017-10-09] MEDS ORDERED: Neostigmine Methylsulfate 3mg/3ml Syringe IV ONE (14:44)
[2017-10-09] MEDS ORDERED: Glycopyrrolate 0.2 mg/ml (2ml vial) ONE (14:44)
--- NOTE | 2017-10-09 15:08 | CP.PCM.PN ---
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 Pt seen at the bedside w/ family member in room. He is NPO and waiting for laprascopic surgical removal of gallbladder. 01/23 present in RLQ of abdomen relieved by pain medication. Denies headache, fever, chills, n/v, diarrhea, constipation or urinary changes. No distress noted. Objective - Vital Signs/Intake and Output Vital Signs (last 24 hours): Temp Pulse Resp BP Pulse Ox 98.4 F 60 20 149/77 97 10/09/17 13:21 10/09/17 13:21 10/09/17 13:21 10/09/17 13:21 10/09/17 13:21 Intake and Output: 10/09/17 10/09/17 06:59 18:59 Intake Total 480 0 Output Total 1000 Balance -520 0 - Medications Medications: Current Medications Acetaminophen (Tylenol 325mg Tab) 650 mg PO Q4 PRN PRN Reason: Fever >100.4 F Last Admin: 10/08/17 10:50 Dose: 650 mg Alprazolam (Xanax) 0.5 mg PO PRN PRN; Protocol PRN Reason: Insomnia Atorvastatin Calcium (Lipitor) 40 mg PO DIN [facility] Last Admin: 10/08/17 17:05 Dose: Not Given Fluoxetine HCl (Prozac) 20 mg PO DAILY [facility] Last Admin: 10/08/17 10:46 Dose: 20 mg Gabapentin (Neurontin) 300 mg PO TID [facility] PRN Reason: Protocol Last Admin: 10/08/17 17:06 Dose: Not Given Glipizide (Glucotrol Xl) 5 mg PO BID [facility] Last Admin: 10/08/17 17:05 Dose: Not Given Hydromorphone HCl (Dilaudid) 0.5 mg IVP Q4H PRN PRN Reason: Pain, moderate (4-7) Insulin Human Regular (Humulin R Low) 0 units SC ACHS [facility] PRN Reason: Protocol Last Admin: 10/09/17 08:13 Dose: Not Given Metformin HCl (Glucophage) 1,000 mg PO BID [facility] Last Admin: 10/08/17 17:06 Dose: Not Given Ondansetron HCl (Zofran Inj) 4 mg IVP Q4 PRN PRN Reason: Nausea/Vomiting Pantoprazole Sodium (Protonix Inj) 40 mg IVP DAILY [facility] Last Admin: 10/09/17 10:38 Dose: 40 mg - Labs Labs: 10/09/17 06:00 10/09/17 06:00 PT 13.2 SECONDS (9.4-12.5) H 10/07/17 22:19 INR 1.15 (0.93-1.08) H 10/07/17 22:19 - Constitutional Appears: Chronically Ill - Head Exam Head Exam: ATRAUMATIC, NORMAL INSPECTION, NORMOCEPHALIC - Eye Exam Eye Exam: EOMI, Normal appearance, PERRL Pupil Exam: NORMAL ACCOMODATION, PERRL - ENT Exam ENT Exam: Mucous Membranes Moist, Normal Exam - Neck Exam Neck Exam: Full ROM, Normal Inspection. absent: Lymphadenopathy - Respiratory Exam Respiratory Exam: Clear to Ausculation Bilateral, NORMAL BREATHING PATTERN - Cardiovascular Exam Cardiovascular Exam: REGULAR RHYTHM, +S1, +S2. absent: Murmur - GI/Abdominal Exam GI & Abdominal Exam: Soft, Normal Bowel Sounds. absent: Tenderness - Extremities Exam Extremities Exam: Normal Capillary Refill Additional comments: R hand contracture. - Neurological Exam Neurological Exam: Alert, Awake, Oriented x3 - Psychiatric Exam Psychiatric exam: Normal Affect, Normal Mood - Skin Skin Exam: Dry, Intact, Normal Color, Warm Assessment and Plan (1) Leukocytosis Status: Acute (2) Anemia Status: Acute (3) Cholecystitis Status: Acute (4) Cholelithiasis Status: Acute (5) Gastritis Status: Acute - Assessment and Plan (Free Text) Plan: Nicotine patch. IV zosyn. GI/VTE prophlyaxis. Neurology cleared for surgery. continue asa/lipitor, SBP (120-130), glucose (140 -180) Consults: Surgery - Dr. Mendoza Pulmonary - Dr. Almodovar Neurologist - Dr. Head Cardio - Dr. Seo Reviewed: ECG = ABNORMAL, SR, 1 degree AVB, L axis deviation CXR = poor inspiration w/ low lung volumes, crowded bronchovascualr markings & minor bibasalar atelectasis Carotid US = bilateral 20-39% CT head = hypodense lacunar infarcts within bilateral basal ganglia, L periventricular region, chronic, scattered foci of hypodensity within white matter, mild soft tissue swelling / scarring posterior scalp MRCP = cholelithiasis, mild gallbladder, thickening/pericholecystic, splenic cyst US abd = Cholelitiasis w/ thickened gallbalder, mild hepatomegaly w/ fatty infiltration of liver <Marily Bermudez - Last Filed: 10/09/17 21:55> Objective - Vital Signs/Intake and Output Vital Signs (last 24 hours): Temp Pulse Resp BP Pulse Ox 98 F 74 14 179/86 H 99 10/09/17 17:00 10/09/17 17:00 10/09/17 17:00 10/09/17 17:00 10/09/17 17:00 Intake and Output: 10/09/17 10/10/17 18:59 06:59 Intake Total 0 Balance 0 - Medications Medications: Current Medications Acetaminophen (Tylenol 325mg Tab) 650 mg PO Q4 PRN PRN Reason: Fever >100.4 F Last Admin: 10/08/17 10:50 Dose: 650 mg Alprazolam (Xanax) 0.5 mg PO PRN PRN; Protocol PRN Reason: Insomnia Atorvastatin Calcium (Lipitor) 40 mg PO DIN [facility] Last Admin: 10/09/17 17:34 Dose: Not Given Enoxaparin Sodium (Lovenox) 40 mg SC DAILY [facility] PRN Reason: Protocol Fluoxetine HCl (Prozac) 20 mg PO DAILY [facility] Last Admin: 10/09/17 17:23 Dose: Not Given Gabapentin (Neurontin) 300 mg PO TID [facility] PRN Reason: Protocol Last Admin: 10/09/17 17:34 Dose: Not Given Glipizide (Glucotrol Xl) 5 mg PO BID [facility] Last Admin: 10/09/17 17:33 Dose: Not Given Hydromorphone HCl (Dilaudid) 0.5 mg IVP Q4H PRN PRN Reason: Pain, moderate (4-7) Last Admin: 10/09/17 17:37 Dose: 0.5 mg Insulin Human Regular (Humulin R Low) 0 units SC ACHS [facility] PRN Reason: Protocol Last Admin: 10/09/17 21:27 Dose: Not Given Metformin HCl (Glucophage) 1,000 mg PO BID [facility] Last Admin: 10/09/17 17:33 Dose: Not Given Nicotine (Nicoderm Cq) 1 patch TD DAILY [facility] Ondansetron HCl (Zofran Inj) 4 mg IVP Q4 PRN PRN Reason: Nausea/Vomiting Ondansetron HCl (Zofran Inj) 4 mg IVP ONCE PRN PRN Reason: Nausea/Vomiting - Labs Labs: 10/09/17 06:00 10/09/17 06:00 PT 13.2 SECONDS (9.4-12.5) H 10/07/17 22:19 INR 1.15 (0.93-1.08) H 10/07/17 22:19 Assessment and Plan - Assessment and Plan (Free Text) Plan: 47 yr male w/ history of HTN, 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 Pt seen at the bedside w/ family member in room. He is NPO and waiting for laprascopic surgical removal of gallbladder. 5/10 present in RLQ of abdomen relieved by pain medication. Denies headache, fever, chills, n/v, diarrhea, constipation or urinary changes. No distress noted. agreed all above , chart ,meds and labs noted , will f/u , surgeon , neuro, cardio is on the case , cont, zosyn . oob . pt
[2017-10-09] MEDS ORDERED: HYDROmorphone 0.5 mg/0.5 ml ISec IVP PRN (15:11)
[2017-10-09] MEDS ORDERED: Lactated Ringer's 1,000 ML IV SCH (15:15)
--- NOTE | 2017-10-09 15:51 | CARD ---
APPROVED REPORT EKG Measurement Heart [id number] <Conclusion> Sinus rhythm with 1st degree AV block Left axis deviation Abnormal ECG
--- NOTE | 2017-10-09 16:03 | PCM.SURG1 ---
Surgeon's Initial Post Op Note - Surgeon's Notes Surgeon: Dr. Mendoza Power Grader Operator: Doreen PGY3, Maxine PGY1 Type of Anesthesia: General Endo, Local Anesthesia Administered By: Dr. John Pratt Pre-Operative Diagnosis: Symptomatic Cholelithiasis; Chronic Cholecystitis Operative Findings: Umbilical hernia, Cholelithiasis. See operative report Post-Operative Diagnosis: same Operation Performed: Laparoscopic Cholecystectomy; Primary repair of Umbilical hernia. Specimen/Specimens Removed: Gallbladder Estimated Blood Loss: EBL {In ML}: 10 Blood Products Given: N/A Drains Used: No Drains Post-Op Condition: Good Date of Surgery/Procedure: 10/09/17 Time of Surgery/Procedure: 16:03
[2017-10-09] MEDS: GlipiZIDE 5 mg SR Tab PO SCH ×2 (17:23→17:33)
[2017-10-09] MEDS: HYDROmorphone 0.5 mg/0.5 ml ISec IVP PRN ×2 (17:37→23:42)
--- NOTE | 2017-10-10 00:28 | CON ---
DATE: 10/09/2017 TYPE OF EVALUATION: Preop evaluation for possible cholecystectomy. BRIEF CLINICAL HISTORY: This is a 47-year-old male with past medical history significant for cholelithiasis, gastritis, history of hypertension, diabetes, hyperlipidemia, CVA 3 years ago with right-sided residual weakness came to the Emergency Room with complaint of abdominal pain developed after having a fatty meal, this happened before, possible acute cholecystitis, the patient is requiring to go to the OR at 12 noon, so Cardiology consult called for preop evaluation risk stratification. The patient denies any chest pain. Denies any shortness of breath. The patient walks with a cane. PAST MEDICAL HISTORY: Significant for hypertension, diabetes, hyperlipidemia, history of CVA with right-sided residual weakness, upper and lower extremities right-sided weakness and walks with the cane. FAMILY HISTORY: Mother with possible coronary artery disease. SOCIAL HISTORY: Quit smoking 3 years ago after the smoke for 23 years. No history of alcohol abuse. No history of substance abuse. ALLERGIES: NOT ALLERGIC TO ANY MEDICATIONS. CURRENT MEDICATIONS: The patient is taking Xanax, Prozac, aspirin, Pepcid, Neurontin, and glipizide. REVIEW OF SYSTEMS: As per HPI. PHYSICAL EXAMINATION: VITAL SIGNS: As follows; temperature afebrile, heart rate 65, and blood pressure 144/81. HEENT: PERRLA. Extraocular muscles intact. NECK: Supple. No carotid bruit or thyromegaly. CHEST: Clear to auscultation. HEART: S1 and S2 regular. ABDOMEN: Soft. EXTREMITIES: Clubbing and cyanosis negative. LABORATORY DATA: Blood workup as follows: WBC 7.9, hemoglobin 12.8, hematocrit 36.6, and platelet count 310. Chemistry shows sodium 141, potassium , chloride 103, carbon dioxide 27, anion gap of 15, BUN 10, and creatinine 0.8. TSH is 1.65. EKG not available. Chest x-ray not done. IMPRESSION AND PLAN: Acute cholecystitis, possibly requiring operating room for cholecystectomy. Preoperative evaluation risk stratification for surgery. The patient denies any chest pain. Denies any shortness of breath. Denies any palpitation. No evidence of congestive heart failure, ischemia or angina, or arrhythmia. The patient is cleared to go for operating room with moderate to high risk because of underlying comorbidity, suggest to get a stat chest x-ray, stat electrocardiogram, and if electrocardiogram and chest x-ray within normal limits, the patient is okay to go to operating room with moderate risk as above. No absolute contraindication. We will follow with you. We will get a stat electrocardiogram. We will put physician-nurse communication. If electrocardiogram is okay, we will clear the patient to go for operating room. Thank you Dr. Bermudez for providing us the opportunity in taking care of Dexter Brower. Mike Kenny MD
--- NOTE | 2017-10-10 03:51 | OP ---
PROCEDURE DATE: PREOPERATIVE DIAGNOSES: 1. Acute cholecystitis. 2. Cholelithiasis. 3. Cerebrovascular accident. POSTOPERATIVE DIAGNOSES: 1. Acute cholecystitis. 2. Cholelithiasis. 3. Cerebrovascular accident. 4. Umbilical hernia approximately 2 x 2 cm size. OPERATION DONE: 1. Laparoscopic cholecystectomy. 2. Open umbilical hernia repair without mesh, primary closure. SURGEON: Dada Mendoza MD TYPE OF ANESTHESIA: General endotracheal tube anesthesia. ESTIMATED BLOOD LOSS: Around 10 mL. DRAINS: None. PATHOLOGY: Gallbladder with gallstones was sent for the pathology. COMPLICATIONS: None. INTRAOPERATIVE FINDINGS: The patient had changes of acute cholecystitis and cholelithiasis, and the patient had a thickened gallbladder as well as large stones, and the patient also had a 2 x 2 cm umbilical hernia. INTRAOPERATIVE STEPS: This is a 47-year-old male with past medical history of CVA and right side hemiparesis, and the patient was diagnosed with acute cholecystitis and cholelithiasis, and the patient was consented for laparoscopic cholecystectomy, possible open, brought to the OR, placed supine on the operating table. DESCRIPTION OF PROCEDURE: After induction of the anesthesia, the abdomen was prepped and draped in the usual sterile fashion. A supraumbilical transverse incision was made after incising skin and subcutaneous tissue. The patient found to have umbilical hernia and the umbilical hernia sac was opened. The Lin port was placed through the hernia sac and pneumo was created. Another 12-mm port was placed in the midline below the episternum and two 5-mm ports were placed in the midclavicular and anterior axillary line. After that, a grasper and dissector was introduced. Gallbladder was retracted cranially and the Calot's triangle dissection was done. Cystic duct and cystic artery were identified and clipped at 3 places and cut in between 2 clips in the gallbladder. The gallbladder was dissected free from the gallbladder fossa and placed in an EndoCatch bag, taken out through the umbilical port site and sent off the table for pathology. After the proper hemostasis, all the port was taken out under vision, pneumo was deflated. The umbilical port site where there was a hernia that was enlarged due to the really large stone and all the specimen removal was done and after that, the hernia defect as well as the wound was closed with 0 Prolene multiple interrupted sutures and the wound was closed in a two layer, the subcu with 2-0 Vicryl and skin with a 4-0 Monocryl at all the port site and dry sterile dressing was applied. The patient tolerated the procedure well. Count of the instrument was correct. There was no apparent complication. The patient was extubated in OR and sent to the postanesthesia care unit in stable condition. Dada Mendoza MD
[2017-10-10 06:25] LABS: HEMOGLOBIN 13.7 g/dL (14.0-18.0); MEAN CELL VOLUME 85.1 fl (80.0-105.0); MEAN CORPUSCULAR HEMOGLOBIN 28.8 pg (25.0-35.0); MEAN CORPUSCULAR HGB CONC 33.9 g/dl (31.0-37.0); MEAN PLATELET VOLUME 10.5 fl (7.0-11.0); RBC 4.75 10^6/uL (3.5-6.1); RED CELL DISTRIBUTION WIDTH 14.3 % (11.5-14.5); WHITE BLOOD COUNT 12.7 10^3/ul (4.5-11.0)
[2017-10-10 06:48] LABS: BLOOD UREA NITROGEN 10 mg/dL (7-21); CALCIUM 9.6 mg/dL (8.4-10.5); GFR AFRICAN-AMERICAN > 60; GFR NON-AFRICAN AMERICAN > 60
[2017-10-10] MEDS: Insulin Reg-LOW-Coverage SC SCH ×3 (07:57→22:20)
[2017-10-10] MEDS: Enoxaparin 40 mg Syringe SC SCH (10:26)
[2017-10-10] MEDS: GlipiZIDE 5 mg SR Tab PO SCH ×2 (10:27→17:27)
[2017-10-10] MEDS: Oxycodone/Acetaminophen 5/325 mg Tab PO PRN ×2 (10:28→18:46)
--- NOTE | 2017-10-10 10:48 | CP.PCM.PN ---
<Elizabeth Chanel - Last Filed: 10/10/17 10:45> Subjective - Date & Time of Evaluation Date of Evaluation: 10/10/17 Time of Evaluation: 09:00 - Subjective Subjective: Neurology PGY-[address] Head Pt tolerated breakfast, sitting comfortably in chair with . REA drain was just pulled. urine clear yellow in urinal. denied acute complaint Objective - Vital Signs/Intake and Output Vital Signs (last 24 hours): Temp Pulse Resp BP Pulse Ox 98 F 78 14 148/74 99 10/09/17 17:00 10/10/17 10:26 10/09/17 17:00 10/10/17 10:26 10/09/17 17:00 - Medications Medications: Current Medications Acetaminophen (Tylenol 325mg Tab) 650 mg PO Q4 PRN PRN Reason: Fever >100.4 F Last Admin: 10/08/17 10:50 Dose: 650 mg Alprazolam (Xanax) 0.5 mg PO PRN PRN; Protocol PRN Reason: Insomnia Aspirin (Ecotrin) 81 mg PO DAILY [facility] Last Admin: 10/10/17 10:28 Dose: 81 mg Atorvastatin Calcium (Lipitor) 40 mg PO DIN [facility] Last Admin: 10/09/17 17:34 Dose: Not Given Enoxaparin Sodium (Lovenox) 40 mg SC DAILY [facility] PRN Reason: Protocol Last Admin: 10/10/17 10:26 Dose: 40 mg Fluoxetine HCl (Prozac) 20 mg PO DAILY [facility] Last Admin: 10/10/17 10:27 Dose: 20 mg Gabapentin (Neurontin) 300 mg PO TID [facility] PRN Reason: Protocol Last Admin: 10/10/17 10:27 Dose: 300 mg Glipizide (Glucotrol Xl) 5 mg PO BID [facility] Last Admin: 10/10/17 10:27 Dose: 5 mg Hydralazine HCl (Apresoline) 10 mg PO QID PRN PRN Reason: for sbp>170 Insulin Human Regular (Humulin R Low) 0 units SC ACHS [facility] PRN Reason: Protocol Last Admin: 10/10/17 07:57 Dose: 1 units Lisinopril (Zestril) 2.5 mg PO DAILY [facility] Last Admin: 10/10/17 10:26 Dose: 2.5 mg Metformin HCl (Glucophage) 1,000 mg PO BID [facility] Last Admin: 10/10/17 10:27 Dose: 1,000 mg Nicotine (Nicoderm Cq) 1 patch TD DAILY [facility] Last Admin: 10/10/17 10:30 Dose: Not Given Ondansetron HCl (Zofran Inj) 4 mg IVP Q4 PRN PRN Reason: Nausea/Vomiting Ondansetron HCl (Zofran Inj) 4 mg IVP ONCE PRN PRN Reason: Nausea/Vomiting Oxycodone/Acetaminophen (Percocet 5/325 Mg Tab) 1 tab PO Q6H PRN PRN Reason: Pain, severe (8-10) Stop: 10/13/17 08:50 Last Admin: 10/10/17 10:28 Dose: 1 tab - Labs Labs: 10/10/17 05:10 10/10/17 05:10 PT 13.2 SECONDS (9.4-12.5) H 10/07/17 22:19 INR 1.15 (0.93-1.08) H 10/07/17 22:19 - Constitutional Appears: No Acute Distress - Head Exam Head Exam: ATRAUMATIC, NORMAL INSPECTION, NORMOCEPHALIC - Eye Exam Eye Exam: EOMI, Normal appearance, PERRL Pupil Exam: NORMAL ACCOMODATION, PERRL - ENT Exam ENT Exam: Mucous Membranes Moist, Normal Exam - Neck Exam Additional comments: supple - Respiratory Exam Respiratory Exam: Clear to Ausculation Bilateral, NORMAL BREATHING PATTERN. absent: Rales, Rhonchi, Wheezes - Cardiovascular Exam Cardiovascular Exam: REGULAR RHYTHM, +S1, +S2. absent: Murmur - GI/Abdominal Exam GI & Abdominal Exam: Soft, Tenderness (sore at surgical sites. bandages intact, no strike through), Normal Bowel Sounds - Extremities Exam Extremities Exam: Normal Capillary Refill. absent: Calf Tenderness, Pedal Edema - Neurological Exam Neurological Exam: Alert, Awake, CN II-XII Intact, Oriented x3 Additional comments: Speech: fluent, mild slurring Motor: R shoulder 0/5. Increase tone in RUE in elbow extension and wrist extension RUE 0/5; LUE 5/5 RLE: 4/5; LLE 5/5 Sensory: intact coordination: heel-gliding intact Assessment and Plan - Assessment and Plan (Free Text) Plan: Mr Dexter Shah, 47M former smoker hx of CVA w/ residual spastic RUE weakness with mild depression, diabetes, and HTN has symptomatic cholelithiasis, s/p laparoscopic cholecystectomy POD #1. His leukocytosis is likely reactive to surgery. A1C is 6.3. His blood pressure was high at 179/86. His blood glucose was high at 220 likely due to stress of surgery. - continue aspirin 81 and lipitor 40 for stroke prevention - maintain SBP 120-130 - maintain blood glucose 140-180 - carotid ultrasound: 20-39% proximal ICA stenosed, anteroir flow - CT head: chronic hypodense lacunar infart b/l basal ganglia and L periventrical scattered hypodensity in white matter likely Small vessel ischemic disease Mild soft tissue swelling in posterior scalp - follow up with neurologist outpatient s/r/d/w Dr. Head <Elbert Head - Last Filed: 10/10/17 14:32> Objective - Vital Signs/Intake and Output Vital Signs (last 24 hours): Temp Pulse Resp BP Pulse Ox 99.6 F 78 17 165/81 H 99 10/10/17 12:00 10/10/17 12:00 10/10/17 12:00 10/10/17 12:00 10/09/17 17:00 - Medications Medications: Current Medications Acetaminophen (Tylenol 325mg Tab) 650 mg PO Q4 PRN PRN Reason: Fever >100.4 F Last Admin: 10/08/17 10:50 Dose: 650 mg Alprazolam (Xanax) 0.5 mg PO HS PRN; Protocol PRN Reason: Insomnia Aspirin (Ecotrin) 81 mg PO DAILY [facility] Last Admin: 10/10/17 10:28 Dose: 81 mg Atorvastatin Calcium (Lipitor) 40 mg PO DIN [facility] Last Admin: 10/09/17 17:34 Dose: Not Given Enoxaparin Sodium (Lovenox) 40 mg SC DAILY [facility] PRN Reason: Protocol Last Admin: 10/10/17 10:26 Dose: 40 mg Fluoxetine HCl (Prozac) 20 mg PO DAILY [facility] Last Admin: 10/10/17 10:27 Dose: 20 mg Gabapentin (Neurontin) 300 mg PO TID [facility] PRN Reason: Protocol Last Admin: 10/10/17 13:59 Dose: 300 mg Glipizide (Glucotrol Xl) 5 mg PO BID [facility] Last Admin: 10/10/17 10:27 Dose: 5 mg Hydralazine HCl (Apresoline) 10 mg PO QID PRN PRN Reason: for sbp>170 Insulin Human Regular (Humulin R Low) 0 units SC ACHS [facility] PRN Reason: Protocol Last Admin: 10/10/17 11:30 Dose: Not Given Lisinopril (Zestril) 2.5 mg PO DAILY [facility] Last Admin: 10/10/17 10:26 Dose: 2.5 mg Metformin HCl (Glucophage) 1,000 mg PO BID [facility] Last Admin: 10/10/17 10:27 Dose: 1,000 mg Nicotine (Nicoderm Cq) 1 patch TD DAILY [facility] Last Admin: 10/10/17 10:30 Dose: Not Given Ondansetron HCl (Zofran Inj) 4 mg IVP Q4 PRN PRN Reason: Nausea/Vomiting Oxycodone/Acetaminophen (Percocet 5/325 Mg Tab) 1 tab PO Q6H PRN PRN Reason: Pain, severe (8-10) Stop: 10/13/17 08:50 Last Admin: 10/10/17 10:28 Dose: 1 tab - Labs Labs: 10/10/17 05:10 10/10/17 05:10 PT 13.2 SECONDS (9.4-12.5) H 10/07/17 22:19 INR 1.15 (0.93-1.08) H 10/07/17 22:19 Attending/Attestation - Attestation I have personally seen and examined this patient.: Yes I have fully participated in the care of the patient.: Yes I have reviewed all pertinent clinical information, including history, physical exam and plan: Yes
--- NOTE | 2017-10-10 12:53 | CP.PCM.PN ---
<Judy Logan - Last Filed: 10/10/17 12:49> Subjective - Date & Time of Evaluation Date of Evaluation: 10/10/17 Time of Evaluation: 12:49 - Subjective Subjective: Surgery: Dr. Mendoza Pt seen and examined. No acute overnight events. Pt states he's feeling well and pain is well controlled. Tolerating regular food. Denies N/V, F/C. Objective - Vital Signs/Intake and Output Vital Signs (last 24 hours): Temp Pulse Resp BP Pulse Ox 98 F 78 14 148/74 99 10/09/17 17:00 10/10/17 10:26 10/09/17 17:00 10/10/17 10:26 10/09/17 17:00 - Medications Medications: Current Medications Acetaminophen (Tylenol 325mg Tab) 650 mg PO Q4 PRN PRN Reason: Fever >100.4 F Last Admin: 10/08/17 10:50 Dose: 650 mg Alprazolam (Xanax) 0.5 mg PO PRN PRN; Protocol PRN Reason: Insomnia Aspirin (Ecotrin) 81 mg PO DAILY [facility] Last Admin: 10/10/17 10:28 Dose: 81 mg Atorvastatin Calcium (Lipitor) 40 mg PO DIN [facility] Last Admin: 10/09/17 17:34 Dose: Not Given Enoxaparin Sodium (Lovenox) 40 mg SC DAILY [facility] PRN Reason: Protocol Last Admin: 10/10/17 10:26 Dose: 40 mg Fluoxetine HCl (Prozac) 20 mg PO DAILY [facility] Last Admin: 10/10/17 10:27 Dose: 20 mg Gabapentin (Neurontin) 300 mg PO TID [facility] PRN Reason: Protocol Last Admin: 10/10/17 10:27 Dose: 300 mg Glipizide (Glucotrol Xl) 5 mg PO BID [facility] Last Admin: 10/10/17 10:27 Dose: 5 mg Hydralazine HCl (Apresoline) 10 mg PO QID PRN PRN Reason: for sbp>170 Insulin Human Regular (Humulin R Low) 0 units SC ACHS [facility] PRN Reason: Protocol Last Admin: 10/10/17 07:57 Dose: 1 units Lisinopril (Zestril) 2.5 mg PO DAILY [facility] Last Admin: 10/10/17 10:26 Dose: 2.5 mg Metformin HCl (Glucophage) 1,000 mg PO BID [facility] Last Admin: 10/10/17 10:27 Dose: 1,000 mg Nicotine (Nicoderm Cq) 1 patch TD DAILY [facility] Last Admin: 10/10/17 10:30 Dose: Not Given Ondansetron HCl (Zofran Inj) 4 mg IVP Q4 PRN PRN Reason: Nausea/Vomiting Ondansetron HCl (Zofran Inj) 4 mg IVP ONCE PRN PRN Reason: Nausea/Vomiting Oxycodone/Acetaminophen (Percocet 5/325 Mg Tab) 1 tab PO Q6H PRN PRN Reason: Pain, severe (8-10) Stop: 10/13/17 08:50 Last Admin: 10/10/17 10:28 Dose: 1 tab - Labs Labs: 10/10/17 05:10 10/10/17 05:10 PT 13.2 SECONDS (9.4-12.5) H 10/07/17 22:19 INR 1.15 (0.93-1.08) H 10/07/17 22:19 - Constitutional Appears: Well, No Acute Distress - Head Exam Head Exam: ATRAUMATIC, NORMOCEPHALIC - ENT Exam ENT Exam: Mucous Membranes Moist - Respiratory Exam Respiratory Exam: NORMAL BREATHING PATTERN - Cardiovascular Exam Cardiovascular Exam: RRR - GI/Abdominal Exam GI & Abdominal Exam: Soft. absent: Distended, Tenderness, Rebound Additional comments: incisional dressings C/D/I - Neurological Exam Neurological Exam: Alert, Awake, Oriented x3 - Skin Skin Exam: Dry, Warm Assessment and Plan - Assessment and Plan (Free Text) Assessment: 47M s/p lap adalid: POD#1 Plan: - Ok to DC from surgical standpoint - f/u with Dr. Mendoza in 1-2 weeks - Encourage ambulation & IS - d/w Dr. Reji Logan, PGY-3 Surgery <Dada Mendoza B - Last Filed: 10/12/17 15:32> Objective - Vital Signs/Intake and Output Vital Signs (last 24 hours): Temp Pulse Resp BP Pulse Ox 97.9 F 70 18 158/87 H 97 10/11/17 04:50 10/11/17 12:47 10/11/17 04:50 10/11/17 12:47 10/11/17 04:50 - Labs Labs: 10/11/17 06:45 10/11/17 06:45 PT 13.2 SECONDS (9.4-12.5) H 10/07/17 22:19 INR 1.15 (0.93-1.08) H 10/07/17 22:19 Attending/Attestation - Attestation I have personally seen and examined this patient.: Yes I have fully participated in the care of the patient.: Yes I have reviewed all pertinent clinical information, including history, physical exam and plan: Yes Notes (Text): Pt was seen and examined at bedside Agree with above note and assessment Pt is improving clinically Pt can be DC home with PO antibiotics Reg low fat diet f.u as out pt Plan d.w pt in detail Risk and benefit explained in detail.
--- NOTE | 2017-10-11 03:10 | CON ---
DATE: 10/10/2017 PULMONARY CONSULTATION REFERRING PHYSICIAN: Marily Bermudez MD REASON FOR CONSULTATION: Loud snoring, daytime sleeping and tired, status post cholecystectomy. HISTORY OF PRESENT ILLNESS: This is a 47-year-old gentleman with past medical history significant for hypertension, history of CVA, renal insufficiency, diabetes, and history of depression, who comes in with abdominal pain, found to have cholecystitis, underwent lap cholecystectomy, which was successful, doing well on clear liquid diet. Sitting up in a chair. According to , he has a loud snoring, daytime sleeping and tired, unsteady on the feet. No hemoptysis. No hematemesis. No hematuria. No diarrhea. PAST MEDICAL HISTORY: As per present illness. ALLERGIES: NONE KNOWN. SOCIAL HISTORY: Positive history of smoking. Denies any alcohol use. FAMILY HISTORY: No significant cardiopulmonary disease reported. MEDICATIONS: He is on hydralazine 10 mg four times a day p.r.n., Ecotrin 81 mg daily, metformin 1000 mg twice a day, glipizide XL 5 mg twice a day, insulin coverage, Lipitor 40 mg daily, Lovenox 40 mg daily, gabapentin 300 mg 3 times a day, Nicoderm patch daily, Percocet 5/325 mg one tab q.6 hours p.r.n., Prozac 20 mg daily, Tylenol p.r.n., Xanax 0.5 mg at bedtime p.r.n., Zestril 2.5 mg daily, and Zofran p.r.n. basis. REVIEW OF SYSTEMS: No headache, no rhinitis. Has a loud snoring, daytime sleeping, shortness of breath with exertion. Abdominal pain is better. Still has incision site discomfort. No dysuria. No leg pain or leg swelling. PHYSICAL EXAMINATION: GENERAL: Sitting up in the chair, in no acute distress. VITAL SIGNS: Temperature is 99, heart rate is 78, respiratory rate is 16, blood pressure is 165/81, pulse ox 99% on 3 L nasal cannula. HEENT: Moist mucous membranes. Crowded airway. Mallampati score is IV. NECK: Short and thick neck. LUNGS: Have fair airflow with rhonchi. HEART: S1 and S2. ABDOMEN: Soft. Mild tenderness. EXTREMITIES: There is no edema. NEUROLOGIC: Awake and alert. Follows simple commands. LABORATORY DATA: Shows hemoglobin is 13.7, hematocrit is 40.4, WBC is 12.7, and platelet count is 337. INR is 1.1. Sodium 138, potassium 4.2, chloride 100, bicarbonate 26, BUN 10, creatinine 0.8, glucose 220, and calcium is 9.6. Had MRCP done on 10/08/2017, which shows cholelithiasis, mild gallbladder wall thickening, and pericolic edema, correlates clinically for possible cholecystitis. Chest x-ray done yesterday shows poor inspiratory film, bronchovascular marking, and minor basilar atelectasis. IMPRESSION AND PLAN: Status post lap cholecystectomy, history of cerebrovascular accident in the remote past, hypertension, diabetes, may have a sleep apnea syndrome, and chronic obstructive lung disease. I spoke to the patient and the patient's at bedside. All the questions answered. Hopefully, the patient will be discharged home tomorrow. The patient is advised to stop smoking. Recommended PFT and attend sleep study upon discharge as outpatient. Thank you and we will follow with you. Mike Almodovar MD
[2017-10-11 04:51] VITALS: RESP 18; TEMP 97.9; O2SAT 97
--- NOTE | 2017-10-11 05:03 | PN ---
DATE: SUBJECTIVE: The patient is seen and examined at the bedside, looking comfortable, sitting on the chair. and [id number] were sitting on the chair also. The patient tolerated food very well, but denies nausea or vomiting. Denies bowel movements, even he do not have flatus. Did physical therapy. No fever. No chills. PHYSICAL EXAMINATION: VITAL SIGNS: Temperature 98, heart rate 78, respiratory rate 14, blood pressure 148/74, and pulse oximetry 99%. HEENT: Head: Normocephalic, atraumatic. Eyes: PERRLA. Extraocular muscles are intact. Conjunctivae are clear. Nose patent. Mucous membranes moist. NECK: Supple. No carotid bruits. No JVD or thyromegaly. CHEST: Bilaterally symmetrical. HEART: S1 and S2 positive. LUNGS: Clear to auscultation. ABDOMEN: Soft. Bowel sounds positive. No organomegaly. EXTREMITIES: No edema. No cyanosis. NEUROLOGICAL: The patient is awake and alert. Moving all four extremities. No focal deficits. MEDICATIONS: Tylenol, Xanax, Ecotrin, Lipitor, Lovenox, Prozac, Neurontin, Glucotrol, hydralazine, Zestril, Glucophage, Nicoderm, Zofran. LABORATORY DATA: White blood cell 12.7, hemoglobin 13.7, hematocrit 40.4, and platelets 337. Sodium 138, potassium 4.2, BUN 10, creatinine 0.8, glucose 220. ASSESSMENT AND PLAN: Mr. Dexter Brower is a 47-year-old male with leukocytosis, anemia, hyperglycemia, status post laparoscopic cholecystectomy, postoperative day one, history of stroke, encourage ambulation, seen by Dr. Elbert Head, history of heavy smoking, cerebrovascular accident, residual spastic right upper extremity weakness with mild depression, diabetes mellitus, hypertension; leukocytosis, looks like reactive to surgery; hemoglobin A1c is 6.3. Blood pressure was high, may be due to stress of surgery, continue with aspirin, control the blood pressure. Carotid ultrasound was done. CAT scan of the head done, reviewed by me. Gastrointestinal and deep venous thrombosis prophylaxis. We will follow up. Marily Bermudez MD
[2017-10-11 07:21] LABS: MEAN CORPUSCULAR HEMOGLOBIN 29.3 pg (25.0-35.0); MEAN PLATELET VOLUME 10.2 fl (7.0-11.0); RBC 4.44 10^6/uL (3.5-6.1); RED CELL DISTRIBUTION WIDTH 14.9 % (11.5-14.5); WHITE BLOOD COUNT 10.9 10^3/ul (4.5-11.0)
[2017-10-11 07:44] LABS: BLOOD UREA NITROGEN 14 mg/dL (7-21); CALCIUM 9.3 mg/dL (8.4-10.5); GFR AFRICAN-AMERICAN > 60; GFR NON-AFRICAN AMERICAN > 60
--- NOTE | 2017-10-11 08:33 | PN ---
DATE: 10/10/2017 REASON FOR CONSULTATION AND FOLLOWUP: Preop evaluation and postop followup, status post cholecystectomy and laparoscopy. SUBJECTIVE: The patient denies any chest pain or shortness of breath. PHYSICAL EXAMINATION GENERAL: Not in apparent distress. VITAL SIGNS: Examination as follows, temperature afebrile, heart rate 74, blood pressure 179/86. HEENT: PERRLA. Extraocular muscles intact. NECK: Supple. No carotid bruits or thyromegaly. CHEST: Clear to auscultation. HEART: S1, S2 regular. ABDOMEN: Soft. EXTREMITIES: Clubbing and cyanosis negative. DATA: Blood workup as follows: WBC is 12.7, hemoglobin , hematocrit 40.4, platelet count 337,000. Chemistry shows sodium 130, potassium , carbon dioxide , anion gap of , creatinine 0.8. IMPRESSION: Status post cholecystectomy, hypertension, hyperlipidemia, left-sided cerebrovascular accident with some residual weakness, postoperative course no arrhythmia noted, uncontrolled hypertension. RECOMMENDATIONS: We will review antihypertensive medications. We will restart 10 mg of lisinopril and p.r.n. hydralazine for systolic more than 170. Thank you Dr[address] Bermudez for providing us the opportunity in taking care of the patient, . We will follow with you. Possible discharge, the patient will be cleared from cardiology point of view to be discharged. Mike Kenny MD
--- NOTE | 2017-10-11 09:51 | CP.PCM.PN ---
Subjective - Date & Time of Evaluation Date of Evaluation: 10/11/17 Time of Evaluation: 07:25 - Subjective Subjective: Surgery Progress note. Dr. Mendoza Pt seen and examined at bedside. No new complaints. Tolerating diet. No N/V/D. No Abd pain. No F/C. Ambulating with physical therapy. Dressings clean dry and intact. Objective - Vital Signs/Intake and Output Vital Signs (last 24 hours): Temp Pulse Resp BP Pulse Ox 97.9 F 76 18 123/79 97 10/11/17 04:50 10/11/17 04:50 10/11/17 04:50 10/11/17 04:50 10/11/17 04:50 - Medications Medications: Current Medications Acetaminophen (Tylenol 325mg Tab) 650 mg PO Q4 PRN PRN Reason: Fever >100.4 F Last Admin: 10/08/17 10:50 Dose: 650 mg Alprazolam (Xanax) 0.5 mg PO HS PRN; Protocol PRN Reason: Insomnia Aspirin (Ecotrin) 81 mg PO DAILY [facility] Last Admin: 10/10/17 10:28 Dose: 81 mg Atorvastatin Calcium (Lipitor) 40 mg PO DIN [facility] Last Admin: 10/10/17 17:27 Dose: 40 mg Enoxaparin Sodium (Lovenox) 40 mg SC DAILY [facility] PRN Reason: Protocol Last Admin: 10/10/17 10:26 Dose: 40 mg Fluoxetine HCl (Prozac) 20 mg PO DAILY [facility] Last Admin: 10/10/17 10:27 Dose: 20 mg Gabapentin (Neurontin) 300 mg PO TID [facility] PRN Reason: Protocol Last Admin: 10/10/17 17:27 Dose: 300 mg Glipizide (Glucotrol Xl) 5 mg PO BID [facility] Last Admin: 10/10/17 17:27 Dose: 5 mg Hydralazine HCl (Apresoline) 10 mg PO QID PRN PRN Reason: for sbp>170 Insulin Human Regular (Humulin R Low) 0 units SC ACHS [facility] PRN Reason: Protocol Last Admin: 10/10/17 22:20 Dose: Not Given Lisinopril (Zestril) 2.5 mg PO DAILY [facility] Last Admin: 10/10/17 10:26 Dose: 2.5 mg Metformin HCl (Glucophage) 1,000 mg PO BID [facility] Last Admin: 10/10/17 17:27 Dose: 1,000 mg Nicotine (Nicoderm Cq) 1 patch TD DAILY [facility] Last Admin: 10/10/17 10:30 Dose: Not Given Ondansetron HCl (Zofran Inj) 4 mg IVP Q4 PRN PRN Reason: Nausea/Vomiting Oxycodone/Acetaminophen (Percocet 5/325 Mg Tab) 1 tab PO Q6H PRN PRN Reason: Pain, severe (8-10) Stop: 10/13/17 08:50 Last Admin: 10/10/17 18:46 Dose: 1 tab - Labs Labs: 10/11/17 06:45 10/11/17 06:45 PT 13.2 SECONDS (9.4-12.5) H 10/07/17 22:19 INR 1.15 (0.93-1.08) H 10/07/17 22:19 - Constitutional Appears: Non-toxic, No Acute Distress - Head Exam Head Exam: ATRAUMATIC, NORMAL INSPECTION, NORMOCEPHALIC - Eye Exam Eye Exam: EOMI. absent: Scleral icterus - ENT Exam ENT Exam: Mucous Membranes Moist - Neck Exam Neck Exam: Full ROM - Respiratory Exam Respiratory Exam: NORMAL BREATHING PATTERN. absent: Accessory Muscle Use, Respiratory Distress - GI/Abdominal Exam GI & Abdominal Exam: Soft. absent: Firm, Guarding, Rigid, Tenderness, Rebound Additional comments: Dressings clean dry and intact. No rebound, no guarding. - Extremities Exam Extremities Exam: Normal Inspection. absent: Calf Tenderness - Neurological Exam Neurological Exam: Alert, Awake, Oriented x3 - Skin Skin Exam: Dry, Intact, Normal Color, Warm Assessment and Plan - Assessment and Plan (Free Text) Assessment: 47yo M s/p lap adalid and Umbilical hernia repair (primary closure) on 10/09/17, POD 2 Plan: - Cleared for DC from surgical standpoint - OK to shower. Do not remove steri-strips. No heavy lifting (>10lbs) for 4-6 weeks. - f/u with Dr. Mendoza in 1-2 weeks - Surgery team will sign off. Please re-consult as necessary Shaheed Goodman PGY1 surgery pager: [phone]
--- NOTE | 2017-10-11 10:17 | CP.PCM.PN ---
Subjective - Date & Time of Evaluation Date of Evaluation: 10/11/17 Time of Evaluation: 09:45 Objective - Vital Signs/Intake and Output Vital Signs (last 24 hours): Temp Pulse Resp BP Pulse Ox 97.9 F 76 18 123/79 97 10/11/17 04:50 10/11/17 04:50 10/11/17 04:50 10/11/17 04:50 10/11/17 04:50 - Medications Medications: Current Medications Acetaminophen (Tylenol 325mg Tab) 650 mg PO Q4 PRN PRN Reason: Fever >100.4 F Last Admin: 10/08/17 10:50 Dose: 650 mg Alprazolam (Xanax) 0.5 mg PO HS PRN; Protocol PRN Reason: Insomnia Aspirin (Ecotrin) 81 mg PO DAILY [facility] Last Admin: 10/10/17 10:28 Dose: 81 mg Atorvastatin Calcium (Lipitor) 40 mg PO DIN [facility] Last Admin: 10/10/17 17:27 Dose: 40 mg Enoxaparin Sodium (Lovenox) 40 mg SC DAILY [facility] PRN Reason: Protocol Last Admin: 10/10/17 10:26 Dose: 40 mg Fluoxetine HCl (Prozac) 20 mg PO DAILY [facility] Last Admin: 10/10/17 10:27 Dose: 20 mg Gabapentin (Neurontin) 300 mg PO TID [facility] PRN Reason: Protocol Last Admin: 10/10/17 17:27 Dose: 300 mg Glipizide (Glucotrol Xl) 5 mg PO BID [facility] Last Admin: 10/10/17 17:27 Dose: 5 mg Hydralazine HCl (Apresoline) 10 mg PO QID PRN PRN Reason: for sbp>170 Insulin Human Regular (Humulin R Low) 0 units SC ACHS [facility] PRN Reason: Protocol Last Admin: 10/10/17 22:20 Dose: Not Given Lisinopril (Zestril) 2.5 mg PO DAILY [facility] Last Admin: 10/10/17 10:26 Dose: 2.5 mg Metformin HCl (Glucophage) 1,000 mg PO BID [facility] Last Admin: 10/10/17 17:27 Dose: 1,000 mg Nicotine (Nicoderm Cq) 1 patch TD DAILY [facility] Last Admin: 10/10/17 10:30 Dose: Not Given Ondansetron HCl (Zofran Inj) 4 mg IVP Q4 PRN PRN Reason: Nausea/Vomiting Oxycodone/Acetaminophen (Percocet 5/325 Mg Tab) 1 tab PO Q6H PRN PRN Reason: Pain, severe (8-10) Stop: 10/13/17 08:50 Last Admin: 10/10/17 18:46 Dose: 1 tab - Labs Labs: 10/11/17 06:45 10/11/17 06:45 PT 13.2 SECONDS (9.4-12.5) H 10/07/17 22:19 INR 1.15 (0.93-1.08) H 10/07/17 22:19 Assessment and Plan (1) Leukocytosis Status: Acute (2) Anemia Status: Acute (3) Cholecystitis Status: Acute (4) Cholelithiasis Status: Acute (5) Gastritis Status: Acute
--- NOTE | 2017-10-11 12:26 | PN ---
DATE: REASON FOR CONSULTATION AND FOLLOWUP: Preop evaluation for cholecystitis, status post cholecystectomy, postop followup. SUBJECTIVE: The patient denies any chest pain, shortness of breath or any palpitations. OBJECTIVE: GENERAL: Not in apparent distress. VITAL SIGNS: As follows, temperature afebrile, heart rate 76, and blood pressure 123/79. HEENT: PERRLA. Extraocular muscles intact. NECK: Supple. No carotid bruits or thyromegaly. CHEST: Clear to auscultation. HEART: S1 and S2, regular. ABDOMEN: Soft. EXTREMITIES: Clubbing and cyanosis negative. LABORATORY DATA: Blood workup as follows: WBC 10.1, hemoglobin 13, hematocrit 38.2, and platelet count 290. Chemistry shows sodium 130, potassium 4, chloride 102, carbon dioxide 30, anion gap of 4, BUN 14, and creatinine 0.8. IMPRESSION: Acute cholecystitis, status post cholecystectomy and laparoscopic, history of cerebrovascular accident, hypertension, diabetes, hyperlipidemia, right-sided extremities walks with a cane, tolerating food. RECOMMENDATIONS: Started yesterday lisinopril. Continue DVT prophylaxis, p.r.n. hydralazine blood pressure is okay. We will follow with you. Thank you Dr. Bermudez for providing us the opportunity in taking care of the patient, Leonarda Renteria. We will resume back on aspirin and continue atorvastatin. CVS status is stable. Mike Kenny MD cc: Marily Bermudez MD
[2017-10-11] MEDS: Enoxaparin 40 mg Syringe SC SCH (12:46)
[2017-10-11] MEDS: GlipiZIDE 5 mg SR Tab PO SCH (12:53)
[2017-10-11] MEDS: Insulin Reg-LOW-Coverage SC SCH (12:53)
[2017-10-11 12:57] VITALS: BP 158/87; PULSE 70
--- NOTE | 2017-10-11 21:09 | CP.PCM.DIS ---
<DanelleMilagrosnydia Keenan - Last Filed: 10/11/17 21:06> Provider - Provider Date of Admission: 10/08/17 01:23 Attending physician: Marily Bermudez MD Primary care physician: Roxann Ziegler MD Consults: Surgery - Dr. Mendoza Pulmonary - Dr. Almodovar Neurologist - Dr. Head Cardio - Dr. Seo Time Spent in preparation of Discharge (in minutes): 35 Diagnosis - Discharge Diagnosis (1) Leukocytosis Status: Acute (2) Anemia Status: Acute (3) Cholecystitis Status: Acute (4) Cholelithiasis Status: Acute (5) Gastritis Status: Acute Hospital Course - Lab Results Lab Results: Most Recent Lab Values WBC 10.9 10^3/ul (4.5-11.0) 10/11/17 06:45 RBC 4.44 10^6/uL (3.5-6.1) 10/11/17 06:45 Hgb 13.0 g/dL (14.0-18.0) L 10/11/17 06:45 Hct 38.2 % (42.0-52.0) L 10/11/17 06:45 MCV 86.0 fl (80.0-105.0) 10/11/17 06:45 MCH 29.3 pg (25.0-35.0) 10/11/17 06:45 MCHC 34.0 g/dl (31.0-37.0) 10/11/17 06:45 RDW 14.9 % (11.5-14.5) H 10/11/17 06:45 Plt Count 290 10^3/uL (120.0-450.0) 10/11/17 06:45 MPV 10.2 fl (7.0-11.0) 10/11/17 06:45 Gran % 64.7 % (50.0-68.0) 10/09/17 06:00 Lymph % (Auto) 23.3 % (22.0-35.0) 10/09/17 06:00 [place] % (Auto) 7.0 % (1.0-6.0) H 10/09/17 06:00 Eos % (Auto) 4.2 % (1.5-5.0) 10/09/17 06:00 Baso % (Auto) 0.8 % (0.0-3.0) 10/09/17 06:00 Gran # 5.12 (1.4-6.5) 10/09/17 06:00 Lymph # 1.8 (1.2-3.4) 10/09/17 06:00 [place] # 0.6 (0.1-0.6) 10/09/17 06:00 Eos # 0.3 (0.0-0.7) 10/09/17 06:00 Baso # 0.06 K/mm3 (0.0-2.0) 10/09/17 06:00 PT 13.2 SECONDS (9.4-12.5) H 10/07/17 22:19 INR 1.15 (0.93-1.08) H 10/07/17 22:19 Sodium 139 mmol/L (132-148) 10/11/17 06:45 Potassium 4.0 mmol/L (3.6-5.0) 10/11/17 06:45 Chloride 102 mmol/L (98-107) 10/11/17 06:45 Carbon Dioxide 30 mmol/L (21-33) 10/11/17 06:45 Anion Gap 12 (10-20) 10/11/17 06:45 BUN 14 mg/dL (7-21) 10/11/17 06:45 Creatinine 0.8 mg/dl (0.8-1.5) 10/11/17 06:45 Est GFR ( Amer) > 60 10/11/17 06:45 Est GFR (Non-Af Amer) > 60 10/11/17 06:45 POC Glucose (mg/dL) 224 mg/dL (65-110) H 10/11/17 11:06 Random Glucose 148 mg/dL (70-110) H 10/11/17 06:45 Hemoglobin A1c 6.3 % (4.2-6.5) 10/09/17 06:00 Calcium 9.3 mg/dL (8.4-10.5) 10/11/17 06:45 Iron 48 ug/dL (45-180) 10/09/17 06:00 TIBC 252 ug/dL (261-462) L 10/09/17 06:00 % Saturation 19 % (20-55) L 10/09/17 06:00 Total Bilirubin 1.0 mg/dL (0.2-1.3) 10/09/17 06:00 AST 21 U/L (17-59) 10/09/17 06:00 ALT 23 U/L (7-56) 10/09/17 06:00 Alkaline Phosphatase 106 U/L (38-126) 10/09/17 06:00 Total Protein 6.3 g/dL (5.8-8.3) 10/09/17 06:00 Albumin 3.4 g/dL (3.0-4.8) 10/09/17 06:00 Globulin 2.9 gm/dL 10/09/17 06:00 Albumin/Globulin Ratio 1.2 (1.1-1.8) 10/09/17 06:00 Triglycerides 83 mg/dL (35-160) 10/09/17 06:00 Cholesterol 85 mg/dL (130-200) L 10/09/17 06:00 LDL Cholesterol Direct 45 mg/dL (0-129) 10/09/17 06:00 HDL Cholesterol 27 mg/dL (29-60) L 10/09/17 06:00 Lipase 127 U/L (23-300) 10/07/17 22:19 Vitamin B12 445 pg/mL (239-931) 10/09/17 06:00 Folate 14.0 ng/mL 10/09/17 06:00 TSH 3rd Generation 1.65 mIU/mL (0.46-4.68) 10/09/17 06:00 Urine Color Yellow (YELLOW) 10/07/17 22:54 Urine Appearance Sl cloudy (CLEAR) 10/07/17 22:54 Urine pH 6.0 (4.7-8.0) 10/07/17 22:54 Ur Specific [place] >= 1.030 (1.005-1.035) 10/07/17 22:54 Urine Protein 100 mg/dL (<30 mg/dL) H 10/07/17 22:54 Urine Glucose (UA) Negative mg/dL (NEGATIVE) 10/07/17 22:54 Urine Ketones Trace mg/dL (NEGATIVE) H 10/07/17 22:54 Urine Blood Negative (NEGATIVE) 10/07/17 22:54 Urine Nitrate Negative (NEGATIVE) 10/07/17 22:54 Urine Bilirubin Negative (NEGATIVE) 10/07/17 22:54 Urine Urobilinogen 1.0 E.U./dL (<1 E.U./dL) H 10/07/17 22:54 Ur Leukocyte Esterase Negative Joy/uL (NEGATIVE) 10/07/17 22:54 Urine RBC 0 - 2 /hpf (0-2) 10/07/17 22:54 Urine WBC 0 - 2 /hpf (0-6) 10/07/17 22:54 Ur Epithelial Cells 0 - 2 /hpf (0-5) 10/07/17 22:54 Urine Other Usperm 10/07/17 22:54 - Hospital Course Hospital Course: 47 yr male w/ history of HTN, 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 Pt seen at the bedside w/ family member in room. Successfully underwent laprascopic surgical removal of gallbladder on 10/09/17. Pt is safe for discharge home. Reviewed: ECG = ABNORMAL, SR, 1 degree AVB, L axis deviation CXR = poor inspiration w/ low lung volumes, crowded bronchovascular markings & minor bibasalar atelectasis Carotid US = bilateral 20-39% CT head = hypodense lacunar infarcts within bilateral basal ganglia, L periventricular region, chronic, scattered foci of hypodensity within white matter, mild soft tissue swelling / scarring posterior scalp MRCP = cholelithiasis, mild gallbladder, thickening/pericholecystic, splenic cyst US abd = Cholelitiasis w/ thickened gallbalder, mild hepatomegaly w/ fatty infiltration of liver - Date & Time of H&P Date of H&P: 10/11/17 Time of H&P: 09:45 Discharge Exam - Head Exam Head Exam: ATRAUMATIC, NORMAL INSPECTION, NORMOCEPHALIC - Eye Exam Eye Exam: EOMI, Normal appearance, PERRL Pupil Exam: NORMAL ACCOMODATION, PERRL - ENT Exam ENT Exam: Mucous Membranes Moist - Neck Exam Neck exam: Full Rom, Normal Inspection - Respiratory Exam Respiratory Exam: Decreased Breath Sounds, Clear to PA & Lateral, NORMAL BREATHING PATTERN - Cardiovascular Exam Cardiovascular Exam: +S1, +S2 - GI/Abdominal Exam GI & Abdominal Exam: Hypoactive Bowel Sounds, Soft Additional comments: lap sites x3 covered by bandaid. C/D/I - Extremities Exam Additional comments: R hand contracture. - Neurological Exam Neurological exam: Alert, Oriented x3 - Psychiatric Exam Psychiatric exam: Normal Affect, Normal Mood - Skin Skin Exam: Dry, Intact, Normal Color, Warm Discharge Plan - Discharge Medications Prescriptions: hydrALAZINE [Apresoline] 10 mg PO QID PRN #120 tab PRN Reason: for sbp>170 Lisinopril [Zestril] 2.5 mg PO DAILY #30 tab - Follow Up Plan Condition: IMPROVED Disposition: HOME/ ROUTINE Instructions: Cholecystitis (DC), Cholecystitis (GEN), Low Fat Diet (DC) Additional Instructions: Follow up with DR Bermudez in the office on 10/14/17. Telephone # . Referrals: Roxann Ziegler MD [Primary Care Provider] - <Marily Bermudez - Last Filed: 10/12/17 00:18> Provider - Provider Date of Admission: 10/08/17 01:23 Attending physician: Marily Bermudez MD Primary care physician: Roxann Ziegler MD Hospital Course - Lab Results Lab Results: Most Recent Lab Values WBC 10.9 10^3/ul (4.5-11.0) 10/11/17 06:45 RBC 4.44 10^6/uL (3.5-6.1) 10/11/17 06:45 Hgb 13.0 g/dL (14.0-18.0) L 10/11/17 06:45 Hct 38.2 % (42.0-52.0) L 10/11/17 06:45 MCV 86.0 fl (80.0-105.0) 10/11/17 06:45 MCH 29.3 pg (25.0-35.0) 10/11/17 06:45 MCHC 34.0 g/dl (31.0-37.0) 10/11/17 06:45 RDW 14.9 % (11.5-14.5) H 10/11/17 06:45 Plt Count 290 10^3/uL (120.0-450.0) 10/11/17 06:45 MPV 10.2 fl (7.0-11.0) 10/11/17 06:45 Gran % 64.7 % (50.0-68.0) 10/09/17 06:00 Lymph % (Auto) 23.3 % (22.0-35.0) 10/09/17 06:00 [place] % (Auto) 7.0 % (1.0-6.0) H 10/09/17 06:00 Eos % (Auto) 4.2 % (1.5-5.0) 10/09/17 06:00 Baso % (Auto) 0.8 % (0.0-3.0) 10/09/17 06:00 Gran # 5.12 (1.4-6.5) 10/09/17 06:00 Lymph # 1.8 (1.2-3.4) 10/09/17 06:00 [place] # 0.6 (0.1-0.6) 10/09/17 06:00 Eos # 0.3 (0.0-0.7) 10/09/17 06:00 Baso # 0.06 K/mm3 (0.0-2.0) 10/09/17 06:00 PT 13.2 SECONDS (9.4-12.5) H 10/07/17 22:19 INR 1.15 (0.93-1.08) H 10/07/17 22:19 Sodium 139 mmol/L (132-148) 10/11/17 06:45 Potassium 4.0 mmol/L (3.6-5.0) 10/11/17 06:45 Chloride 102 mmol/L (98-107) 10/11/17 06:45 Carbon Dioxide 30 mmol/L (21-33) 10/11/17 06:45 Anion Gap 12 (10-20) 10/11/17 06:45 BUN 14 mg/dL (7-21) 10/11/17 06:45 Creatinine 0.8 mg/dl (0.8-1.5) 10/11/17 06:45 Est GFR ( Amer) > 60 10/11/17 06:45 Est GFR (Non-Af Amer) > 60 10/11/17 06:45 POC Glucose (mg/dL) 224 mg/dL (65-110) H 10/11/17 11:06 Random Glucose 148 mg/dL (70-110) H 10/11/17 06:45 Hemoglobin A1c 6.3 % (4.2-6.5) 10/09/17 06:00 Calcium 9.3 mg/dL (8.4-10.5) 10/11/17 06:45 Iron 48 ug/dL (45-180) 10/09/17 06:00 TIBC 252 ug/dL (261-462) L 10/09/17 06:00 % Saturation 19 % (20-55) L 10/09/17 06:00 Total Bilirubin 1.0 mg/dL (0.2-1.3) 10/09/17 06:00 AST 21 U/L (17-59) 10/09/17 06:00 ALT 23 U/L (7-56) 10/09/17 06:00 Alkaline Phosphatase 106 U/L (38-126) 10/09/17 06:00 Total Protein 6.3 g/dL (5.8-8.3) 10/09/17 06:00 Albumin 3.4 g/dL (3.0-4.8) 10/09/17 06:00 Globulin 2.9 gm/dL 10/09/17 06:00 Albumin/Globulin Ratio 1.2 (1.1-1.8) 10/09/17 06:00 Triglycerides 83 mg/dL (35-160) 10/09/17 06:00 Cholesterol 85 mg/dL (130-200) L 10/09/17 06:00 LDL Cholesterol Direct 45 mg/dL (0-129) 10/09/17 06:00 HDL Cholesterol 27 mg/dL (29-60) L 10/09/17 06:00 Lipase 127 U/L (23-300) 10/07/17 22:19 Vitamin B12 445 pg/mL (239-931) 10/09/17 06:00 Folate 14.0 ng/mL 10/09/17 06:00 TSH 3rd Generation 1.65 mIU/mL (0.46-4.68) 10/09/17 06:00 Urine Color Yellow (YELLOW) 10/07/17 22:54 Urine Appearance Sl cloudy (CLEAR) 10/07/17 22:54 Urine pH 6.0 (4.7-8.0) 10/07/17 22:54 Ur Specific [place] >= 1.030 (1.005-1.035) 10/07/17 22:54 Urine Protein 100 mg/dL (<30 mg/dL) H 10/07/17 22:54 Urine Glucose (UA) Negative mg/dL (NEGATIVE) 10/07/17 22:54 Urine Ketones Trace mg/dL (NEGATIVE) H 10/07/17 22:54 Urine Blood Negative (NEGATIVE) 10/07/17 22:54 Urine Nitrate Negative (NEGATIVE) 10/07/17 22:54 Urine Bilirubin Negative (NEGATIVE) 10/07/17 22:54 Urine Urobilinogen 1.0 E.U./dL (<1 E.U./dL) H 10/07/17 22:54 Ur Leukocyte Esterase Negative Joy/uL (NEGATIVE) 10/07/17 22:54 Urine RBC 0 - 2 /hpf (0-2) 10/07/17 22:54 Urine WBC 0 - 2 /hpf (0-6) 10/07/17 22:54 Ur Epithelial Cells 0 - 2 /hpf (0-5) 10/07/17 22:54 Urine Other Usperm 10/07/17 22:54 - Hospital Course Hospital Course: pt is seen and examined at bed side , looking comfortable . ready to go home, agreed all above , chart .meds and labs noted , will f/u
== END 2017-10-11 17:15 | disposition home or self-care (01) | DRG 418 ==
LOC: ED 21:35 → ERH 10-08 01:23 → 2A 10-08 07:45
PROVIDERS: ADMIT Internal Medicine; ATTEND Internal Medicine
PROC: 0FT44ZZ Resection of Gallbladder, Percutaneous Endoscopic Approach (ICD-10-PCS; principal; 2017-10-09 12:30)
PROC: 0WQF0ZZ Repair Abdominal Wall, Open Approach (ICD-10-PCS; 2017-10-09 12:30)
DX: K80.12 Calculus of gallbladder with acute and chronic cholecystitis without obstruction (principal); K42.9 Umbilical hernia without obstruction or gangrene; I69.351 Hemiplegia and hemiparesis following cerebral infarction affecting right dominant side; E11.65 Type 2 diabetes mellitus with hyperglycemia; K76.0 Fatty (change of) liver, not elsewhere classified; I10 Essential (primary) hypertension; D64.9 Anemia, unspecified; E78.5 Hyperlipidemia, unspecified; K29.70 Gastritis, unspecified, without bleeding; R26.81 Unsteadiness on feet; F32.9 Major depressive disorder, single episode, unspecified; F41.9 Anxiety disorder, unspecified; F17.210 Nicotine dependence, cigarettes, uncomplicated

== ENCOUNTER 2018-04-28 15:39 | Emergency (ER) | payer MEDICARE, OTHER ==
[2018-04-28 15:40] VITALS: BMI 34.4
--- NOTE | 2018-04-28 16:02 | ED PDOC ---
Arrival/HPI - General Chief Complaint: Back Pain Time Seen by Provider: 04/28/18 15:59 - History of Present Illness Narrative History of Present Illness (Text): 04/28/18 16:02 A 47 year old male, whose past medical history includes herniated disks and a stroke, presents to the emergency department complaining of back pain since last week. Patient reports symptoms occured when he was sitting down and he fell over in pain. He also reports pain has progressed since time of onset and radiates to the his right hip area. Patient denies any fever, chills, chest pain , shortness of breath, neck pain, headache, dizziness, or any other complaints. PMD: Dr. Ziegler Time/Duration: > week (last week ) Symptom Onset: Gradual Symptom Course: Unchanged Activities at Onset: Light Context: Home Past Medical History - Provider Review Nursing Documentation Reviewed: Yes - Infectious Disease Hx of Infectious Diseases: None - Tetanus Immunization Tetanus Immunization: Unknown - Cardiac Hx Hypertension: Yes - Pulmonary Hx Respiratory Disorders: Yes (smokes 1 pack a day) - Neurological HX Cerebrovascular Accident: Yes (x 4 years/ R sided weakness residual) - HEENT Hx HEENT Disorder: Yes - Renal Hx Renal Disorder: Yes - Endocrine/Metabolic Hx Diabetes Mellitus Type 2: Yes - Hematological/Oncological Hx Blood Disorders: Yes - Integumentary Hx Dermatological Disorder: Yes - Musculoskeletal/Rheumatological Hx Falls: Yes Hx Unsteady Gait: Yes Other/Comment: RT ARM CONTRACTION - Gastrointestinal Hx Gastrointestinal Disorders: Yes Other/Comment: Dx. gallstone - Genitourinary/Gynecological Hx Genitourinary Disorders: Yes - Psychiatric Hx Depression: Yes Hx Emotional Abuse: No Hx Physical Abuse: No Hx Substance Use: No - Past Surgical History Past Surgical History: No Previous - Anesthesia Hx Anesthesia: No Hx Anesthesia Reactions: No Hx Malignant Hyperthermia: No - Suicidal Assessment Feels Threatened In Home Enviroment: No Family/Social History - Physician Review Nursing Documentation Reviewed: Yes Family/Social History: Unknown Family HX Smoking Status: Current Some Days Smoker Hx Alcohol Use: No Hx Substance Use: No Hx Substance Use Treatment: No Allergies/Home Meds Allergies/Adverse Reactions: Allergies No Known Allergies Allergy (Verified 12/04/13 13:51) Home Medications: Home Meds Medication Instructions Recorded Confirmed ALPRAZolam [Xanax] 0.5 mg PO PRN PRN 09/03/13 10/07/17 FLUoxetine [Prozac] 20 mg PO DAILY 09/03/13 10/07/17 Famotidine [Pepcid] 40 mg PO BID 10/07/17 10/07/17 Gabapentin [Neurontin] 300 mg PO TID 10/07/17 10/07/17 Glipizide [Glipizide Xl] 5 mg PO BID 10/07/17 10/07/17 Review of Systems - Physician Review All systems were reviewed & negative as marked: Yes - Review of Systems Constitutional: absent: Fevers, Night Sweats Respiratory: absent: SOB Cardiovascular: absent: Chest Pain Musculoskeletal: Back Pain. absent: Neck Pain Neurological: absent: Headache, Dizziness Physical Exam Vital Signs Temp Pulse Resp BP Pulse Ox 04/28/18 16:23 98.2 F 61 18 101/51 L 100 - Systems Exam Head: Present: Atraumatic, Normocephalic Pupils: Present: PERRL Extroacular Muscles: Present: EOMI Conjunctiva: Present: Normal Mouth: Present: Moist Mucous Membranes Neck: Present: Normal Range of Motion Respiratory/Chest: Present: Clear to Auscultation, Good Air Exchange. No: Respiratory Distress, Accessory Muscle Use Cardiovascular: Present: Regular Rate and Rhythm, Normal S1, S2. No: Murmurs Abdomen: No: Tenderness, Distention, Peritoneal Signs Back: Present: Paraspinal Tenderness (diffused tenderness in paraspinal lumbar area ) Upper Extremity: Present: Other (right arm in sling ) Lower Extremity: Present: Other (right leg in supportive device ). No: Normal ROM (limited ROM at right hip; secondary to pain ) Neurological: Present: GCS=15, CN II-XII Intact, Speech Normal Skin: Present: Warm, Dry, Normal Color. No: Rashes Psychiatric: Present: Alert, Oriented x 3, Normal Insight, Normal Concentration Medical Decision Making ED Course and Treatment: 04/28/18 16:09 Impression: A 47 year old male presents to the emergency department complaining of back pain. Plan: -- Tylenol -- Felxeril -- Toradol -- Lidoderm -- Reassess and disposition Prior Visits: Notes and results from previous visits were reviewed. Progress Notes: 04/28/18 17:59 patient reports improvement in his low back pain and appears comfortable. patient informed to follow up with his pcp for further management. patient discourage from consulting with chiropractor for this issue. it is recommended that the patient see a banner painter as epidural injections are a reasonable course of action for the patient's pain with known lumbar HNP. - Medication Orders Current Medication Orders: Lidocaine (Lidoderm) 1 ea TD DAILY KAREEN Last Admin: 04/28/18 16:36 Dose: 1 ea MAR Transdermal Patch Site Document 04/28/18 16:36 [place] (Rec: 04/28/18 16:36 [place] [id number]) Transdermal Patch Site Transdermal Patch Site Left Lower Back Discontinued Medications Acetaminophen (Tylenol 325mg Tab) 975 mg PO STAT STA Stop: 04/28/18 16:01 Last Admin: 04/28/18 16:36 Dose: 975 mg Cyclobenzaprine HCl (Flexeril) 5 mg PO STAT STA Stop: 04/28/18 16:01 Last Admin: 04/28/18 16:35 Dose: 5 mg Ketorolac Tromethamine (Toradol) 60 mg IM STAT STA Stop: 04/28/18 16:01 Last Admin: 04/28/18 16:36 Dose: 60 mg MAR Pain Assessment Document 04/28/18 16:36 HI (Rec: 04/28/18 16:36 [place] [id number]) Pain Reassessment Is this a pain reassessment? No IM Administration Charges Document 04/28/18 16:36 HI (Rec: 04/28/18 16:36 [place] [id number]) Charges for Administration # of IM Administrations 1 - Scribe Statement The provider has reviewed the documentation as recorded by the Chinyereiblacie Leos All medical record entries made by the Scribe were at my direction and personally dictated by me. I have reviewed the chart and agree that the record accurately reflects my personal performance of the history, physical exam, medical decision making, and the department course for this patient. I have also personally directed, reviewed, and agree with the discharge instructions and disposition. Disposition/Present on Arrival - Present on Arrival Any Indicators Present on Arrival: No History of DVT/PE: No History of Uncontrolled Diabetes: Yes Urinary Catheter: No History of Decub. Ulcer: No History Surgical Site Infection Following: None - Disposition Have Diagnosis and Disposition been Completed?: Yes Diagnosis: Radiculopathy of lumbosacral region Disposition: HOME/ ROUTINE Disposition Time: 18:01 Patient Plan: Discharge Condition: STABLE Discharge Instructions (ExitCare): Radiculopathy (DC) Print Language: ARABIC Additional Instructions: You must follow up with a primary care doctor for further evaluation. Do not go to a chiropractor for this acute pain. ALYSON SANTIAGO, thank you for letting us take care of you today. Your provider was Dr. Salomon Ding and you were treated for LOW BACK PAIN. The emergency medical care you received today was directed at your acute symptoms. If you were prescribed any medication, please fill it and take as directed. It may take several days for your symptoms to resolve. Return to the Emergency Department if your symptoms worsen, do not improve, or if you have any other problems. Please contact your doctor or call one of the physicians/clinics you have been referred to that are listed on the Patient Visit Information form that is included in your discharge packet. Bring any paperwork you were given at discharge with you along with any medications you are taking to your follow up visit. Our treatment cannot replace ongoing medical care by a primary care provider outside of the emergency department. Thank you for allowing the [facility] team to be part of your care today. If you had an X-Ray or CT scan: A Radiologist will review the ED reading if any change in treatment is needed we will contact you. If you had a blood, urine, or wound culture: It will take several days for the results, if any change in treatment is needed we will contact you. If you had an STI test: It will take 48 hours for the results. Please call after 1 week if you have not heard back. Prescriptions: Ibuprofen [Motrin Tab] 600 mg PO QID #42 tab Lidocaine 5% [Lidoderm] 1 ea TD Q12 #14 patch Referrals: Roxann Ziegler MD [Primary Care Provider] - Follow up with primary Forms: FriendCode (French)
[2018-04-28] MEDS ORDERED: Lidocaine 5% Patch TD SCH (16:15)
[2018-04-28 16:23] VITALS: RESP 18; O2SAT 100
[2018-04-28 21:14] VITALS: BP 117/82; PULSE 63; TEMP 98.3
== END 2018-04-28 19:42 | disposition home or self-care (01) ==
LOC: ED 15:39
DX: M54.17 Radiculopathy, lumbosacral region (principal)
CPT/HCPCS: 96372; 99283; J1885